=== PATIENT | male | born 1950 | race African-American/Black ===

== ENCOUNTER 2016-10-11 18:29 | Emergency (ER) | payer BC, OTHER ==
--- NOTE | 2016-10-11 19:09 | ER Document Report ---
ED Medical Screen (RME) - General Chief Complaint: Groin Pain Stated Complaint: GROIN PAIN TRAVEL OUTSIDE OF THE [place] IN LAST 30 DAYS: No - HPI Notes: 10/11/16 19:08 History of hernias patient states now has a fullness in the right inguinal region. Unable to fully examine the patient bed assignment given patient taken straight back - Related Data Allergies/Adverse Reactions: No Known Allergies Allergy (Verified 10/11/16 18:37) Past Medical History - Past Medical History Cardiac Medical History: Reports: Hx Coronary Artery Disease - stent x 2, Hx Hypertension - on meds Pulmonary Medical History: Denies: Hx Asthma, Hx Bronchitis, Hx COPD, Hx Pneumonia Neurological Medical History: Denies: Hx Cerebrovascular Accident, Hx Seizures Renal/ Medical History: Denies: Hx Peritoneal Dialysis Musculoskeltal Medical History: Denies Hx Arthritis Past Surgical History: Reports: Hx Cardiac Surgery - cardiac cath with stent - Immunizations Hx Diphtheria, Pertussis, Tetanus Vaccination: Yes Physical Exam - Vital signs Vitals: Temp Pulse Resp BP Pulse Ox 97.3 F 70 18 152/114 H 100 10/11/16 18:37 10/11/16 18:37 10/11/16 18:37 10/11/16 18:37 10/11/16 18:37 - Respiratory Respiratory status: No respiratory distress Chest status: Nontender Breath sounds: Normal Course - Vital Signs Vital signs: Temp Pulse Resp BP Pulse Ox 97.3 F 70 18 152/114 H 100 10/11/16 18:37 10/11/16 18:37 10/11/16 18:37 10/11/16 18:37 10/11/16 18:37
--- NOTE | 2016-10-11 19:45 | ER Document Report ---
ED General - General Chief Complaint: Groin Pain Stated Complaint: GROIN PAIN Notes: Patient is a 66-year-old male who presents with concerns of right inguinal crease pain. States this started after he was lifting a water cooler earlier today. Since that time he has had a dull, mild, constant, throbbing pain to the right inguinal region. Nothing improves or worsens the pain. States this feels similar to when he is had a inguinal hernia on the left which is status post repair. Denies any abdominal pain, vomiting or additional concerns. Denies any testicular pain. He has not seen his primary care doctor regarding today's concerns. TRAVEL OUTSIDE OF THE [place] IN LAST 30 DAYS: No - Related Data Allergies/Adverse Reactions: No Known Allergies Allergy (Verified 10/11/16 18:37) Past Medical History - General Information source: Patient - Social History Smoking Status: Never Smoker Frequency of alcohol use: None Drug Abuse: None Family History: Reviewed & Not Pertinent Patient has suicidal ideation: No Patient has homicidal ideation: No - Past Medical History Cardiac Medical History: Reports: Hx Coronary Artery Disease - stent x 2, Hx Hypertension - on meds Pulmonary Medical History: Denies: Hx Asthma, Hx Bronchitis, Hx COPD, Hx Pneumonia Neurological Medical History: Denies: Hx Cerebrovascular Accident, Hx Seizures Renal/ Medical History: Denies: Hx Peritoneal Dialysis Musculoskeltal Medical History: Denies Hx Arthritis Past Surgical History: Reports: Hx Cardiac Surgery - cardiac cath with stent - Immunizations Hx Diphtheria, Pertussis, Tetanus Vaccination: Yes Review of Systems - Review of Systems Notes: Constitutional: Negative for fever. HENT: Negative for sore throat. Eyes: Negative for visual changes. Cardiovascular: Negative for chest pain. Respiratory: Negative for shortness of breath. Gastrointestinal: Negative for abdominal pain, vomiting or diarrhea. Genitourinary: Negative for dysuria. Musculoskeletal: Negative for back pain. Skin: Negative for rash. Neurological: Negative for headaches, weakness or numbness. 10 point ROS negative except as marked above and in HPI. Physical Exam - Vital signs Vitals: Temp Pulse Resp BP Pulse Ox 97.3 F 70 18 152/114 H 100 10/11/16 18:37 10/11/16 18:37 10/11/16 18:37 10/11/16 18:37 10/11/16 18:37 Interpretation: Hypertensive Notes: PHYSICAL EXAMINATION: GENERAL: Well-appearing, well-nourished and in no acute distress. HEAD: Atraumatic, normocephalic. EYES: Pupils equal round and reactive to light, extraocular movements intact, sclera anicteric, conjunctiva are normal. ENT: nares patent, oropharynx clear without exudates. Moist mucous membranes. NECK: Normal range of motion, supple without lymphadenopathy LUNGS: Breath sounds clear to auscultation bilaterally and equal. No wheezes rales or rhonchi. HEART: Regular rate and rhythm without murmurs ABDOMEN: Soft, nontender, normoactive bowel sounds. No guarding, no rebound. No masses appreciated. There is a small defect of the right inguinal canal. No intestinal protrusion or bulging with bearing down or coughing : Positive cremasteric reflex bilaterally. No epididymal tenderness. No testicular tenderness EXTREMITIES: Normal range of motion, no pitting or edema. No cyanosis. NEUROLOGICAL: No focal neurological deficits. Moves all extremities spontaneously and on command. PSYCH: Normal mood, normal affect. SKIN: Warm, Dry, normal turgor, no rashes or lesions noted. Course - Re-evaluation Re-evalutation: 10/11/16 19:42 Patient presents with right inguinal pain. He does have a small defect in the right inguinal ring but no actual hernia. This is despite asking patient to bear down and cough and I still do not appreciate any bowel coming through the inguinal defect. Suspect some mild inflammation of the inguinal ring at this time and I have recommended the patient follow-up with outpatient surgery for consideration of repair if he continues to have discomfort. No evidence of testicular torsion, epididymitis, or varicocele on exam. Abdominal exam is otherwise completely benign and I do not intra-abdominal pathology. Patient denies any abdominal pain. At this time will discharge with return precautions and follow-up recommendations. Verbal discharge instructions given a the bedside and opportunity for questions given. Medication warnings reviewed. Patient is in agreement with this plan and has verbalized understanding of return precautions and the need for primary care follow-up in the next 24-72 hours. - Vital Signs Vital signs: Temp Pulse Resp BP Pulse Ox 97.5 F 77 20 159/87 H 100 10/11/16 20:25 10/11/16 20:25 10/11/16 20:25 10/11/16 20:25 10/11/16 20:25 Discharge - Discharge Clinical Impression: Right inguinal pain Condition: Good Disposition: HOME, SELF-CARE Additional Instructions: Please follow-up closely with an outpatient surgery regarding your right inguinal groin pain. There is no hernia on exam at this time. Return to the emergency room immediately if you develop worsening of your pain, vomiting, feel a bulge to the area that does not to go down by laying back and gently pressing on the area, or any other symptoms that are worrisome to you. Referrals: POOL MARRERO MD [ACTIVE STAFF] - Follow up as needed
[2016-10-12 02:40] VITALS: BP 159/87
== END 2016-10-11 20:25 | disposition home or self-care (01) ==
LOC: ER 18:29
DX: R10.31 Right lower quadrant pain (principal)
CPT/HCPCS: 99283

== ENCOUNTER 2016-11-25 11:24 | Emergency (ER) | payer BC, OTHER | END 2016-11-25 18:00 | disposition home or self-care (01) | LOC: ER 11:24 | DX: K40.90 Unilateral inguinal hernia, without obstruction or gangrene, not specified as recurrent (principal); R10.9 Unspecified abdominal pain; I10 Essential (primary) hypertension; I25.10 Atherosclerotic heart disease of native coronary artery without angina pectoris | CPT/HCPCS: 76857; 99284 ==

== ENCOUNTER 2017-01-05 13:28 | Day surgery (SDC) | payer BC, OTHER ==
[2017-01-01 10:13] LABS: HEMATOCRIT 43.2 % (37.9-51.0); HEMOGLOBIN 13.6 g/dL (13.5-17.0); HGB HCT DIFFERENCE -2.4; MEAN CORPUSCULAR HEMOGLOBIN 26.1 pg (27.0-33.4); MEAN CORPUSCULAR HGB CONC 31.4 g/dL (32.0-36.0); MEAN CORPUSCULAR VOLUME 83 fl (80-97); RED CELL DISTRIBUTION WIDTH 16.6 % (11.5-14.0); WHITE BLOOD COUNT 4.1 10^3/uL (4.0-10.5)
[2017-01-01 10:41] LABS: ANION GAP 12 (5-19); BLOOD UREA NITROGEN 11 mg/dL (7-20); CALCIUM 10.9 mg/dL (8.4-10.2); CARBON DIOXIDE 28 mmol/L (22-30); CHLORIDE 106 mmol/L (98-107); CREATININE RESULT 1.01 mg/dL (0.52-1.25); GLUCOSE 88 mg/dL (75-110); POTASSIUM 4.3 mmol/L (3.6-5.0); SODIUM 146.3 mmol/L (137-145)
--- NOTE | 2017-01-02 17:24 | EKG REPORT ---
SEVERITY:- ABNORMAL ECG - SINUS RHYTHM PAIRED VENTRICULAR PREMATURE COMPLEXES LVH BY VOLTAGE : Confirmed by: Jose Conway 02-Jan-2017 17:24:31
[~2017-01-05 13:28] MED LIST: GLYCOPYRROLATE INJ 0.4 MG/2 ML VIAL ONE; LACTATED RINGERS 1000 ML IV PRN; LIDOCAINE 0.5% INJ-PF (5 MG/ML) 50 ML SDV SUBCUT PRN; LIDOCAINE 2% INJ-PF (20 MG/ML) 10 ML AMPUL ONE; METOCLOPRAMIDE HCL INJ/PF 10 MG/2 ML SDV ONE; NEOSTIGMINE METHYLSULFATE 10 MG/10 ML VIAL ONE; ONDANSETRON HCL INJ/PF 4 MG/2 ML SDV ONE; ROCURONIUM BROMIDE INJ 50 MG/5 ML VIAL IV ONE; SUCCINYLCHOLINE CHLORIDE INJ 200 MG/10 ML VIAL ONE
[2017-01-05] MEDS ORDERED: CEFAZOLIN 1 GM/D5W RTU 1 GM/50 ML RTUPB IV ONE (14:41)
[2017-01-05] MEDS ORDERED: ACETAMINOPHEN 325 MG TABLET PO PRN (14:47)
[2017-01-05] MEDS ORDERED: BUPIVACAINE HCL 0.25 % INJ/PF (2.5 MG/1 ML) 30 ML VIAL ONE (15:04)
[2017-01-05] MEDS ORDERED: FENTANYL CITRATE INJ/PF 250 MCG/5 ML AMPULE ONE (19:19)
[2017-01-05] MEDS ORDERED: MIDAZOLAM 2 MG/2 ML INJ ONE (19:19)
[2017-01-05] MEDS ORDERED: BUPIVACAINE HCL 0.25 % INJ/PF (2.5 MG/1 ML) 30 ML VIAL INJ ONE (19:20)
[2017-01-05] MEDS ORDERED: PROPOFOL INJ 200 MG/20 ML VIAL IV ONE (19:20)
[2017-01-05] MEDS ORDERED: MORPHINE SULFATE 10 MG/ML INJ ONE (19:20)
[2017-01-05] MEDS ORDERED: IBUPROFEN INJ 800 MG/8 ML VIAL IV ONE (19:20)
[2017-01-05] MEDS ORDERED: PROMETHAZINE HCL INJ 25 MG/1 ML VIAL IV PRN ×2 (20:16)
[2017-01-05] MEDS ORDERED: FENTANYL CITRATE INJ/PF 100 MCG/2 ML AMPUL IV PRN ×3 (20:16)
[2017-01-05] MEDS ORDERED: DIPHENHYDRAMINE HCL 50 MG/ML VIAL IV PRN (20:16)
[2017-01-05] MEDS ORDERED: OXYCODONE-ACETAMINOPHEN 5-325 MG TABLET PO PRN ×3 (20:16→21:14)
[2017-01-05] MEDS ORDERED: MORPHINE SULFATE 10 MG/ML INJ IV PRN (20:16)
[2017-01-05] MEDS ORDERED: MEPERIDINE HCL/PF INJ 25 MG/1 ML DISP.SYRIN IV PRN (20:16)
--- NOTE | 2017-01-05 21:11 | Operative Report ---
Operative Report DATE OF SURGERY: 01/05/17 PREOPERATIVE DIAGNOSIS: Right inguinal hernia POSTOPERATIVE DIAGNOSIS: Sliding right inguinal hernia OPERATION: Sliding right inguinal hernia repair with mesh SURGEON: CONSUELO BALDERAS ANESTHESIA: GA TISSUE REMOVED OR ALTERED: Cord lipoma COMPLICATIONS: None ESTIMATED BLOOD LOSS: Minimal INTRAOPERATIVE FINDINGS: Sliding indirect right inguinal hernia PROCEDURE: Informed consent was obtained. Patient was brought to the operating room placed on the operating table in supine position. After satisfactory induction of general anesthesia patient's right groin was prepped and draped in usual sterile fashion. A transverse right groin incision was made dissection was carried down and the external oblique was opened along its fascial fibers thus opening the external inguinal ring. The cord was mobilized at the pubic tubercle. The ilioinguinal nerve was identified and protected during the dissection. The direct floor appeared intact. Dissection at the anterior aspect of the cord revealed a cord lipoma which was dissected free clamped divided tied and excised. There was a indirect inguinal hernia sac which was dissected free revealing that the medial portion of it was composed of thick fatty tissue that could very well have been bladder composing sliding inguinal hernia. The hernia sac was opened allowing finger palpation of the femoral space to make sure there was no femoral hernia. All of the sliding component and the indirect inguinal hernia sac was dissected free to well beyond the level of the internal ring allowing it to slide back into the preperitoneal space. Mesh repair was then performed with [employer] pro-valance cutter mesh. A single fixation suture was placed at the pubic tubercle. The sling ends were brought back together in a sling-like configuration thus re-creating the internal inguinal ring and allowing the egress of the cord structures. The mesh laid flat with excellent coverage. Of note the iliohypogastric nerve would have been in the way of the repair therefore he was taken by clamping dividing and tying. Hemostasis appeared excellent. Marcaine was injected. External oblique was closed over the repair and the cord structures using running Vicryl suture. Anjel's fascia was closed with interrupted Vicryl sutures. Skin was closed with subcuticular running Monocryl suture. Patient tolerated procedure well with no apparent complications and was taken to the recovery area in stable condition.
[2017-01-05] MEDS ORDERED: RINGERS SOLUTION,LACTATED 1,000 ML IV PRN (21:14)
--- NOTE | 2017-01-05 21:14 | PDOC DISCHARGE SUMMARY ---
Discharge Summary (SDC) - Discharge Final Diagnosis: Right inguinal hernia Date of Surgery: 01/05/17 Discharge Date: 01/05/17 Condition: Good Treatment or Instructions: Sliding right inguinal hernia repair with mesh. May discharge patient home when met discharge criteria. Follow-up with me in 2 weeks. Stay active at home but avoid strenuous activity. May shower in 2 days. Keep Steri-Strips on. Prescriptions: Oxycodone HCl/Acetaminophen [Percocet 5-325 mg Tablet] 1 - 2 tab PO ASDIR PRN # 25 tablet PRN Reason: For Pain Scale 3-5 Discharge Diet: As Tolerated Discharge Activity: Activity As Tolerated Report the Following to Your Physician Immediately: Fever over 101 Degrees, Unusual Bleeding, Redness, Drainage-Foul Smelling
[2017-01-05] MEDS: ONDANSETRON HCL INJ/PF 4 MG/2 ML SDV IV PRN (23:33)
[2017-01-06] MEDS: ONDANSETRON HCL INJ/PF 4 MG/2 ML SDV IV PRN (03:41)
--- NOTE | 2017-01-06 09:33 | PDOC PROGRESS REPORT ---
Subjective Progress Note for:: 01/06/17 Subjective:: Feels well this morning. Had urinary retention last night requiring Goodwin catheter placement. Patient denies any prior history of urinary retention. Very little pain this morning. Physical Exam Vital Signs: Temp Pulse Resp BP Pulse Ox 98.0 F 44 L 20 120/86 H 99 01/06/17 07:57 01/06/17 07:57 01/06/17 07:57 01/06/17 07:57 01/06/17 07:57 Intake & Output 01/05/17 01/06/17 01/07/17 06:59 06:59 06:59 Intake Total 2450 Output Total 905 Balance 1545 Weight 88.45 kg General appearance: PRESENT: no acute distress, cooperative, other - Bilateral groin lymphadenopathy. Small inguinal lymph nodes palpable. No axillary lymphadenopathy. No epitrochlear lymphadenopathy. No supraclavicular lymphadenopathy. No cervical lymphadenopathy. Respiratory exam: PRESENT: clear to auscultation candida Cardiovascular exam: PRESENT: RRR - hr 60 GI/Abdominal exam: PRESENT: other - Soft, nondistended, nontender to palpation. Rectal exam: PRESENT: other - Normal anal sphincter tone. No perianal masses. Due to patient's body habitus I cannot feel the prostate. Gentrourinary exam: PRESENT: other - Catheter in place. No scrotal swelling. Minimal groin swelling. Wound clean dry and intact. Minimal tenderness. Results Laboratory Results: 01/01/17 09:52 01/05/17 15:20 01/05/17 15:20 Potassium 3.4 L Assessment & Plan - Diagnosis (1) Inguinal hernia of right side without obstruction or gangrene Is this a current diagnosis for this admission?: YesPlan: Sliding right inguinal hernia status post repair. Patient with urinary retention requiring Goodwin catheter. Will start Flomax. Continue Goodwin catheter will try Goodwin removal in a few days. Patient with groin lymphadenopathy. In the reviewing his hospital records he had a CT scan couple of years ago which demonstrated extensive pelvic lymphadenopathy. Patient notes that he never had complete evaluation for this CT scan. While he is in the hospital I will obtain a chest abdomen and pelvic CT scan to evaluate his lymphadenopathy. Will likely discharge the patient home later today. Had nausea and vomiting earlier feels better now. (2) Lymphadenopathy Is this a current diagnosis for this admission?: YesPlan: Check a chest abdomen pelvic CT scan (3) Urinary retention Is this a current diagnosis for this admission?: YesPlan: Placed on Flomax. Keep Goodwin catheter.
[2017-01-06] MEDS ORDERED: TAMSULOSIN HCL 0.4 MG CAP.SR.24H PO ONE (10:30)
--- NOTE | 2017-01-06 14:34 | RADIOLOGY REPORT (SQ) ---
EXAM DESCRIPTION: CT CHEST WITH; CT ABD/PELVIS WITH IV ORAL COMPLETED DATE/TIME: 01/06/2017 1:25 pm REASON FOR STUDY: Lymphadenopathy K40.90 UNIL INGUINAL HERNIA, W/O OBST OR GANGR, NOT SPCF COMPARISON: None. CONTRAST TYPE AND DOSE: contrast/concentration: Isovue 370.00 mg/ml; Total Contrast Delivered: 95.0 ml; Total Saline Delivered: 71.0 ml RENAL FUNCTION: Creatinine 1.0 TECHNIQUE: CT scan of the chest performed using helical scanning technique with dynamic intravenous contrast injection. Images reviewed with lung, soft tissue and bone windows. Reconstructed coronal a nd sagittal MPR images reviewed. All images stored on PACS. CT scan of the abdomen and pelvis performed with intravenous and with oral contrastusing helical scan alyssa technique with dynamic intravenous contrast injection. Images reviewed with lung, soft tissue a nd bone windows. Reconstructed coronal and sagittal MPR images reviewed. Delayed images for evaluat ion of the urinary system also acquired and evaluated. All images stored on PACS. All CT scanners at this facility use dose modulation, iterative reconstruction, and/or weight based d osing when appropriate to reduce radiation dose to as low as reasonably achievable (ALARA). [facility]: Dose Right [facility]: CareDose [facility]: Dose Right [facility]: Teradose 4D [facility]: [employer] RADIATION DOSE: Up-to-date CT equipment and radiation dose reduction techniques were employed. CTDIv ol: 7.6 - 16.7 mGy. DLP: 1833 mGy-cm. . LIMITATIONS: None. FINDINGS: CHEST: On coronal reconstruction images 60-69, and axial images 5 through 14, lobular low-density soft tissu e nodules are present in the extrapleural space is at both the right and left apex hemithorax. There is diffuse soft tissue enlargement of the right and left brachials plexus. 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 LUNGS AND PLEURA: Minimal bibasilar atelectasis. No pleural effusions. No pneumothorax. No worriso me pulmonary nodules. HILAR AND MEDIASTINAL STRUCTURES: No identified masses or abnormal nodes. HEART AND VASCULAR STRUCTURES: No aneurysm or dissection. No central pulmonary emboli. No pericardi al effusion. HARDWARE: None. THYROID AND OTHER SOFT TISSUES: No masses. No adenopathy. BONES: No significant finding. OTHER: Small hiatal hernia. Bilateral gynecomastia ABDOMEN AND PELVIS: There are multiple low-density well defined masses along the bilateral lumbar nerve roots deep to the right and left psoas muscles. There is also soft tissue in the presacral space and in the bilateral sciatic notch is, and along the pelvic retroperitoneal fat. All of these findings are suggestive of plexiform neurofibromas. 2 small isolated probable neurofibromas are present in the right posterior retroperitoneal fat, 3 x 2 cm on axial image 28 and 2.5 x 1.5 cm on axial image 38. There is also 1 .3 cm probable neurofibroma in the left pararenal space on axial image 37. LIVER: Normal size. No masses. No dilated ducts. SPLEEN: Normal size. No focal lesions. PANCREAS: No masses. No significant calcifications. No adjacent inflammation or peripancreatic fluid collections. Pancreatic duct not dilated. GALLBLADDER: No identified stones by CT criteria. No inflammatory changes to suggest cholecystitis. ADRENAL GLANDS: No significant masses or asymmetry. RIGHT KIDNEY AND URETER: No solid masses. No significant calcification. No hydronephrosis or hydroure ter. Right upper pole 3.2 cm cortical cyst. LEFT KIDNEY AND URETER: No solid masses. No significant calcification. No hydronephrosis or hydrouret er. Left upper pole 1 cm cyst, left lower pole 3.3 cm cyst. AORTA AND VESSELS: No aneurysm. No dissection. Renal arteries, SMA, celiac without stenosis. RETROPERITONEUM: As above. 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 No free fluid or peritoneal masses. APPENDIX: Normal. ABDOMINAL WALL: Post recent right inguinal hernia repair with air bubbles along the right lower quadr ant superficial abdominal wall structures, best shown on axial images 41-82. Old remote prior left i nguinal hernia repair new since prior CT 07/25/2012. BONES: No significant or acute findings. PELVIS: Bladder, rectum unremarkable. 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 TECHNICAL DOCUMENTATION: JOB ID: [id number] Quality ID # [id number]: Final reports with documentation of one or more dose reduction techniques (e.g., Au tomated exposure control, adjustment of the mA and/or kV according to patient size, use of iterative reconstruction technique) 2010 [employer]- All Rights Reserved
--- NOTE | 2017-01-06 16:53 | PDOC PROGRESS REPORT ---
Subjective Progress Note for:: 01/06/17 Subjective:: Feels well. Minimal pain. No complaints. Physical Exam Vital Signs: Temp Pulse Resp BP Pulse Ox 97.1 F 75 16 121/83 100 01/06/17 11:59 01/06/17 11:59 01/06/17 11:59 01/06/17 11:59 01/06/17 11:59 Intake & Output 01/05/17 01/06/17 01/07/17 06:59 06:59 06:59 Intake Total 2450 Output Total 905 1600 Balance 1545 -1600 Weight 88.45 kg General appearance: PRESENT: no acute distress, cooperative Respiratory exam: PRESENT: clear to auscultation candida Cardiovascular exam: PRESENT: RRR GI/Abdominal exam: PRESENT: other - Soft, nondistended, nontender to palpation. Gentrourinary exam: PRESENT: other - Indwelling catheter. Minimal groin swelling. Wound clean dry and intact. No erythema. No scrotal swelling. 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 Assessment & Plan - Diagnosis (1) Inguinal hernia of right side without obstruction or gangrene Is this a current diagnosis for this admission?: YesPlan: Sliding right inguinal hernia status post repair. Doing well. Will discharge patient home (2) Lymphadenopathy Is this a current diagnosis for this admission?: YesPlan: What appears like lymphadenopathy may be neurofibromatosis. Chest and abdominal CT scan noteworthy for findings consistent with neurofibromatosis. No other significant findings. Incidental kidney cyst. Will discharge patient home with follow-up with oncology. (3) Urinary retention Is this a current diagnosis for this admission?: YesPlan: Placed on Flomax. Keep Goodwin catheter. Will discharge patient home with leg bag.
--- NOTE | 2017-01-06 16:58 | PDOC DISCHARGE SUMMARY ---
Discharge Summary (SDC) - Discharge Final Diagnosis: Sliding right inguinal hernia. Urinary retention. Neurofibromatosis. Date of Surgery: 01/05/17 Discharge Date: 01/06/17 Condition: Good Treatment or Instructions: Sliding right inguinal hernia repair with mesh. Goodwin catheter insertion. Chest and abdominal pelvic CT scan. Discharge patient with Goodwin catheter. Please instruct patient on Goodwin catheter care. Follow-up with me this Wednesday. Stay active at home but avoid strenuous activity. May shower tomorrow. Keep Steri-Strips on. Prescriptions: Oxycodone HCl/Acetaminophen [Percocet 5-325 mg Tablet] 1 tab PO Q4HP PRN #30 tablet PRN Reason: For Pain Scale 3-5 Tamsulosin HCl [Flomax 0.4 mg Cap.sr] 0.4 mg PO DAILY #7 cap.sr.[id number] Referrals: CONSUELO BALDERAS MD [ACTIVE STAFF] - 01/20/17 9:45 am Discharge Activity: Activity As Tolerated Report the Following to Your Physician Immediately: Fever over 101 Degrees, Unusual Bleeding, Redness, Drainage-Foul Smelling
[2017-01-06 17:16] VITALS: BP 110/75
== END 2017-01-06 18:06 | disposition home or self-care (01) ==
LOC: OROUT 13:28 → UNDOADMOB 22:11 → 2N 22:11 → OROUT 01-06 18:06 → UNDODISOB 01-06 18:06
PROVIDERS: ATTEND Surgery
PROC: 0YU50JZ Supplement Right Inguinal Region with Synthetic Substitute, Open Approach (ICD-10-PCS; principal; 2017-01-05 16:30)
DX: K40.90 Unilateral inguinal hernia, without obstruction or gangrene, not specified as recurrent (principal); D17.6 Benign lipomatous neoplasm of spermatic cord; I10 Essential (primary) hypertension; I25.10 Atherosclerotic heart disease of native coronary artery without angina pectoris; Z79.899 Other long term (current) drug therapy; Z98.61 Coronary angioplasty status
CPT/HCPCS: 93005; 36415 ×2; 84132; 85027; 80048; 88305 ×2; 71260; 74177; 93010; 49525; C1781; J2250; J0690; J3490 ×2; J3010; J2765; J2270; J0330; J2405 ×2; J2704; J1741; 830

== ENCOUNTER → 2017-01-18 | Outpatient (CLI) | payer BC, OTHER | LOC: OD 16:20 | PROVIDERS: ATTEND Nurse Practitioner Adult Health | DX: D40.0 Neoplasm of uncertain behavior of prostate (principal) | CPT/HCPCS: 36415; 84153 ==

== ENCOUNTER 2017-11-17 15:25 | Emergency (ER) | payer BC, OTHER ==
[2017-11-17] MEDS ORDERED: HYDRALAZINE HCL 50 MG TABLET PO ONE (15:53)
[2017-11-17] MEDS ORDERED: AMLODIPINE BESYLATE 10 MG TABLET PO ONE (15:53)
[2017-11-17] MEDS ORDERED: HYDROCHLOROTHIAZIDE 25 MG TABLET PO ONE (15:53)
[2017-11-17 16:59] VITALS: BP 174/124
--- NOTE | 2017-11-17 17:01 | ER Document Report ---
ED General - General Chief Complaint: Blood Pressure Problem Stated Complaint: BLOOD PRESSURE PROBLEMS Time Seen by Provider: 11/17/17 15:53 TRAVEL OUTSIDE OF THE [place] IN LAST 30 DAYS: No - HPI Patient complains to provider of: Elevated blood pressure Notes: Patient coming in for elevated blood pressure patient states he was at work when he became clammy service but therefore came into the ER for further evaluation. Patient denies any head pain chest pain abdominal pain lightheadedness dizziness. Patient states he forgot to take his blood pressure medications point which consist of hydralazine amlodipine and hydrochlorothiazide. Patient nontoxic looking asymptomatic upon my evaluation. - Related Data Allergies/Adverse Reactions: No Known Allergies Allergy (Verified 11/17/17 15:46) Past Medical History - Social History Smoking Status: Never Smoker Chew tobacco use (# tins/day): No Frequency of alcohol use: None Drug Abuse: None Family History: Reviewed & Not Pertinent Patient has suicidal ideation: No Patient has homicidal ideation: No - Past Medical History Cardiac Medical History: Reports: Hx Coronary Artery Disease - stent x 2, Hx Hypertension - on meds Denies: Hx Heart Attack Pulmonary Medical History: Denies: Hx Asthma, Hx Bronchitis, Hx COPD, Hx Pneumonia Neurological Medical History: Denies: Hx Cerebrovascular Accident, Hx Seizures Renal/ Medical History: Denies: Hx Peritoneal Dialysis Musculoskeltal Medical History: Denies Hx Arthritis Past Surgical History: Reports: Hx Cardiac Surgery - cardiac cath with stent - Immunizations Hx Diphtheria, Pertussis, Tetanus Vaccination: Yes Review of Systems - Review of Systems Constitutional: Other - Elevated blood pressure EENT: No symptoms reported Cardiovascular: No symptoms reported Respiratory: No symptoms reported Gastrointestinal: No symptoms reported Genitourinary: No symptoms reported Male Genitourinary: No symptoms reported Musculoskeletal: No symptoms reported Skin: No symptoms reported Hematologic/Lymphatic: No symptoms reported Neurological/Psychological: No symptoms reported Physical Exam - Vital signs Vitals: Temp Pulse Resp BP Pulse Ox 97.6 F 55 L 18 200/156 H 98 11/17/17 15:42 11/17/17 15:42 11/17/17 15:42 11/17/17 15:42 11/17/17 15:42 Interpretation: Hypertensive - General General appearance: Appears well, Alert - HEENT Head: Normocephalic, Atraumatic Eyes: Normal Pupils: PERRL - Respiratory Respiratory status: No respiratory distress Chest status: Nontender Breath sounds: Normal Chest palpation: Normal - Cardiovascular Rhythm: Regular Heart sounds: Normal auscultation Murmur: No - Abdominal Inspection: Normal Distension: No distension Bowel sounds: Normal Tenderness: Nontender Organomegaly: No organomegaly - Back Back: Normal, Nontender - Extremities General upper extremity: Normal inspection, Nontender, Normal color, Normal ROM , Normal temperature General lower extremity: Normal inspection, Nontender, Normal color, Normal ROM , Normal temperature, Normal weight bearing. No: Isidoro's sign - Neurological Neuro grossly intact: Yes Cognition: Normal Orientation: AAOx4 Jena Coma Scale Eye Opening: Spontaneous Jena Coma Scale Verbal: Oriented Jena Coma Scale Motor: Obeys Commands Jena Coma Scale Total: 15 Speech: Normal Motor strength normal: LUE, RUE, LLE, RLE Sensory: Normal - Psychological Associated symptoms: Normal affect, Normal mood - Skin Skin Temperature: Warm Skin Moisture: Dry Skin Color: Normal Course - Re-evaluation Re-evalutation: 11/17/17 20:40 Patient's blood pressure decreasing after 1 hour post p.o. prescribed blood pressure medications. Patient again asymptomatic. Patient was encouraged to take his medications as prescribed once he arrives home. Patient agrees with discharge - Vital Signs Vital signs: Temp Pulse Resp BP Pulse Ox 97.7 F 75 17 174/124 H 100 11/17/17 16:55 11/17/17 16:55 11/17/17 16:55 11/17/17 16:58 11/17/17 16:55 Discharge - Discharge Clinical Impression: Hypertension Qualifiers: Hypertension type: unspecified Qualified Code(s): I10 - Essential (primary) hypertension Condition: Good Disposition: HOME, SELF-CARE Instructions: High Blood Pressure ([facility]) Additional Instructions: Continue with your high blood pressure medications tonight as scheduled. Continue your blood pressure medications as scheduled tomorrow morning to. Follow-up with your primary care physician in 1 week for further evaluation. Return to ER for any concerns. Forms: Return to Work
--- NOTE | 2017-11-17 18:21 | EKG REPORT ---
SEVERITY:- ABNORMAL ECG - SINUS RHYTHM PVC : Confirmed by: Fran Luciano MD 17-Nov-2017 18:19:56
== END 2017-11-17 17:02 | disposition home or self-care (01) ==
LOC: ER 15:25
DX: I10 Essential (primary) hypertension (principal); T46.5X6A Underdosing of other antihypertensive drugs, initial encounter; T46.1X6A Underdosing of calcium-channel blockers, initial encounter; T50.2X6A Underdosing of carbonic-anhydrase inhibitors, benzothiadiazides and other diuretics, initial encounter; Z91.138 Patient's unintentional underdosing of medication regimen for other reason; Z91.14 Patient's other noncompliance with medication regimen; I25.10 Atherosclerotic heart disease of native coronary artery without angina pectoris; Z95.5 Presence of coronary angioplasty implant and graft
CPT/HCPCS: 93005; 93010; 99283

== ENCOUNTER 2018-03-11 08:14 | Emergency (ER) | payer BC, OTHER ==
[2018-03-11 09:17] LABS: ABSOLUTE EOSINOPHILS # (AUTO) 0.1 10^3/uL (0.0-0.6); ABSOLUTE LYMPHOCYTES (AUTO) 2.5 10^3/uL (0.5-4.7); ABSOLUTE MONOCYTES (AUTO) 0.4 10^3/uL (0.1-1.4); ABSOLUTE NEUT (AUTO) 1.4 10^3/uL (1.7-8.2); BASOPHILS % (AUTO) 0.9 % (0-2); EOSINOPHILS % (AUTO) 1.7 % (0-6); HEMATOCRIT 41.6 % (37.9-51.0); HEMOGLOBIN 13.4 g/dL (13.5-17.0); LYMPHOCYTES % (AUTO) 56.6 % (13-45); MEAN CORPUSCULAR HEMOGLOBIN 26.4 pg (27.0-33.4); MEAN CORPUSCULAR HGB CONC 32.3 g/dL (32.0-36.0); MEAN CORPUSCULAR VOLUME 82 fl (80-97); MONOCYTES % (AUTO) 8.3 % (3-13); PLATELET COUNT 253 10^3/uL (150-450); RED CELL DISTRIBUTION WIDTH 17.1 % (11.5-14.0); SEGMENTED NEUTROPHILS % (AUTO) 32.5 % (42-78); TOTAL CELLS COUNTED % (AUTO) 100 %; WHITE BLOOD COUNT 4.4 10^3/uL (4.0-10.5)
--- NOTE | 2018-03-11 09:28 | ER Document Report ---
ED General - General Chief Complaint: Chest Pain Stated Complaint: CHEST PRESSURE Time Seen by Provider: 03/11/18 08:56 TRAVEL OUTSIDE OF THE [place] IN LAST 30 DAYS: No - HPI Patient complains to provider of: chest pressure Notes: Pleasant elderly man presents with episode of chest pressure this morning while getting ready for work approximately 3-1/2 hours ago. Patient has history of cardiac disease. He states this did not feel like that. This is much less. This was a slight chest pressure 2/10 without radiation. Denies diaphoresis, nausea, vomiting, other issues. Patient states his previous heart attacks it was a 10 out of 10 when she got stents. Patient wants to get checked out but does want to go to work today. He does not think he is willing to stay in the hospital or get transferred. Denies fever chills or cough. - Related Data Allergies/Adverse Reactions: No Known Allergies Allergy (Verified 11/17/17 15:46) Past Medical History - Social History Smoking Status: Unknown if Ever Smoked Family History: Reviewed & Not Pertinent Patient has suicidal ideation: No Patient has homicidal ideation: No - Past Medical History Cardiac Medical History: Reports: Hx Coronary Artery Disease - stent x 2, Hx Hypertension - on meds Denies: Hx Heart Attack Pulmonary Medical History: Denies: Hx Asthma, Hx Bronchitis, Hx COPD, Hx Pneumonia Neurological Medical History: Denies: Hx Cerebrovascular Accident, Hx Seizures Renal/ Medical History: Denies: Hx Peritoneal Dialysis Musculoskeletal Medical History: Denies Hx Arthritis Past Surgical History: Reports: Hx Cardiac Surgery - cardiac cath with stent - Immunizations Hx Diphtheria, Pertussis, Tetanus Vaccination: Yes Review of Systems - Review of Systems Notes: REVIEW OF SYSTEMS: CONSTITUTIONAL: -fevers, -chills EENT: -eye pain, -difficulty swallowing, -nasal congestion CARDIOVASCULAR: +chest pain, -syncope. RESPIRATORY: -cough, -SOB GASTROINTESTINAL: -abdominal pain, -nausea, -vomiting, -diarrhea GENITOURINARY: -dysuria, -hematuria MUSCULOSKELETAL: -back pain, -neck pain SKIN: -rash or skin lesions. HEMATOLOGIC: -easy bruising or bleeding. LYMPHATIC: -swollen, enlarged glands. NEUROLOGICAL: -altered mental status or loss of consciousness, -headache, - neurologic symptoms PSYCHIATRIC: -anxiety, -depression. ALL OTHER SYSTEMS REVIEWED AND NEGATIVE. Physical Exam - Vital signs Vitals: Temp Pulse Resp BP Pulse Ox 97.9 F 73 16 159/100 H 99 03/11/18 08:31 03/11/18 08:31 03/11/18 08:31 03/11/18 08:31 03/11/18 08:31 - Notes Notes: PHYSICAL EXAMINATION: GENERAL: Well-appearing, well-nourished and in no acute distress. HEAD: Atraumatic, normocephalic. EYES: Pupils equal round and reactive to light, extraocular movements intact, sclera anicteric, conjunctiva are normal. ENT: nares patent, oropharynx clear without exudates. Moist mucous membranes. NECK: Normal range of motion, supple without lymphadenopathy LUNGS: Breath sounds clear to auscultation bilaterally and equal. No wheezes rales or rhonchi. HEART: Regular rate and rhythm without murmurs ABDOMEN: Soft, nontender, normoactive bowel sounds. No guarding, no rebound. No masses appreciated. EXTREMITIES: Normal range of motion, no pitting or edema. No cyanosis. NEUROLOGICAL: Cranial nerves grossly intact. Normal speech, normal gait. Normal sensory and motor exams. PSYCH: Normal mood, normal affect. SKIN: Warm, Dry, normal turgor, no rashes or lesions noted. Course - Re-evaluation Re-evalutation: 03/11/18 10:35 Well-appearing 67-year-old male presents with some chest pressure this morning. Has no other episodes. EKG is very reassuring, chest x-ray is no focal infiltrate extensive labs unremarkable. Patient observed in the department. I personally walk the department with the patient to see if he can elicit any more symptoms. No more chest pain. Patient is not on any long-acting nitrates. I will initiate indoor therapy this was angina. Follow-up with PCP on Wednesday - Vital Signs Vital signs: Temp Pulse Resp BP Pulse Ox 97.9 F 73 16 159/100 H 99 03/11/18 08:31 03/11/18 08:31 03/11/18 08:31 03/11/18 08:31 03/11/18 08:31 - Laboratory Result Diagrams: 03/11/18 08:48 03/11/18 08:48 Laboratory results interpreted by me: 03/11/18 03/11/18 08:48 08:48 Hgb 13.4 L MCH 26.4 L RDW 17.1 H Seg Neutrophils % 32.5 L Lymphocytes % 56.6 H Absolute Neutrophils 1.4 L Potassium 3.4 L Calcium 10.4 H Alkaline Phosphatase 135 H Creatine Kinase 235 H - EKG Interpretation by Me Additional EKG results interpreted by me: 03/11/18 09:[address] elevations or depressions, no pathologic T-wave inversions., normal intervals Discharge - Discharge Clinical Impression: Chest pressure Condition: Stable Disposition: HOME, SELF-CARE Instructions: Angina Episode ([facility]) Additional Instructions: See your PCP TERRY Prescriptions: Isosorbide Mononitrate [Imdur 30 mg Tablet.er] 30 mg PO DAILY #30 tab.er.24h
[2018-03-11 09:34] LABS: ALANINE AMINOTRANSFERASE 21 U/L (21-72); ALBUMIN 4.3 g/dL (3.5-5.0); ALKALINE PHOSPHATASE 135 U/L (38-126); ANION GAP 11 (5-19); ASPARTATE AMINO TRANSFERASE 31 U/L (17-59); BILIRUBIN,DIRECT 0.4 mg/dL (0.0-0.4); BILIRUBIN,TOTAL 0.5 mg/dL (0.2-1.3); BLOOD UREA NITROGEN 11 mg/dL (7-20); CALCIUM 10.4 mg/dL (8.4-10.2); CARBON DIOXIDE 28 mmol/L (22-30); CHLORIDE 106 mmol/L (98-107); CREATINE KINASE 235 U/L (55-170); GLUCOSE 92 mg/dL (75-110); POTASSIUM 3.4 mmol/L (3.6-5.0)
--- NOTE | 2018-03-11 09:37 | RADIOLOGY REPORT (SQ) ---
EXAM DESCRIPTION: CHEST SINGLE VIEW COMPLETED DATE/TIME: 03/11/2018 9:21 am REASON FOR STUDY: chest pain Chest pain, no trauma COMPARISON: CT chest 01/06/2017 AP chest film 08/14/2007 EXAM PARAMETERS: NUMBER OF VIEWS: One view. TECHNIQUE: Single frontal radiographic view of the chest acquired. RADIATION DOSE: NA LIMITATIONS: None. FINDINGS: LUNGS AND PLEURA: No opacities, masses or pneumothorax. No pleural effusion. MEDIASTINUM AND HILAR STRUCTURES: No masses. Contour normal. HEART AND VASCULAR STRUCTURES: Mild cardiomegaly, stable. Prominent central pulmonary arteries, ques tion pulmonary hypertension BONES: No acute findings. HARDWARE: None in the chest. OTHER: No other significant finding. IMPRESSION: Mild stable cardiomegaly. Prominent central pulmonary arteries TECHNICAL DOCUMENTATION: JOB ID: [id number]- All Rights Reserved Reading location - IP/workstation name: [email or web address]
[2018-03-11 09:44] LABS: CREATINE KINASE MB 2.74 ng/mL (<4.55); TROPONIN I 0.016 ng/mL
[2018-03-11 10:40] VITALS: BP 176/105
--- NOTE | 2018-03-11 12:53 | EKG REPORT ---
SEVERITY:- BORDERLINE ECG - SINUS RHYTHM BORDERLINE T ABNORMALITIES, INFERIOR LEADS : Confirmed by: Fran Luciano MD 11-Mar-2018 12:52:28
== END 2018-03-11 10:46 | disposition home or self-care (01) ==
LOC: ER 08:14
DX: R07.9 Chest pain, unspecified (principal); I25.10 Atherosclerotic heart disease of native coronary artery without angina pectoris; I10 Essential (primary) hypertension
CPT/HCPCS: 36415; 71045; 80053; 82550; 82553; 84484; 85025; 93005; 93010; 99285

== ENCOUNTER 2019-06-12 18:57 | Emergency (ER) | payer BC, MEDICARE, OTHER ==
[2019-06-12] MEDS ORDERED: KETOROLAC TROMETHAMINE INJ/PF 30 MG/1 ML SDV IV ONE (19:47)
[2019-06-12] MEDS ORDERED: ONDANSETRON HCL INJ/PF 4 MG/2 ML SDV IV ONE (19:47)
[2019-06-12 20:19] LABS: APPEARANCE,URINE CLEAR; BILIRUBIN,URINE NEGATIVE (NEGATIVE); CALCIUM OXALATE CRYSTALS,URINE FEW /HPF; COLOR,URINE YELLOW; GLUCOSE, URINE NEGATIVE (NEGATIVE); KETONES,URINE NEGATIVE (NEGATIVE); LEUKOCYTE ESTERASE,URINE NEGATIVE (NEGATIVE); NITRITE,URINE NEGATIVE (NEGATIVE); PROTEIN,URINE NEGATIVE (NEGATIVE); URINE SPECIFIC GRAVITY 1.024
[2019-06-12 20:23] LABS: ABSOLUTE EOSINOPHILS # (AUTO) 0.1 10^3/uL (0.0-0.6); ABSOLUTE LYMPHOCYTES (AUTO) 1.3 10^3/uL (0.5-4.7); ABSOLUTE MONOCYTES (AUTO) 0.3 10^3/uL (0.1-1.4); ABSOLUTE NEUT (AUTO) 1.5 10^3/uL (1.7-8.2); BASOPHILS % (AUTO) 1.1 % (0-2); EOSINOPHILS % (AUTO) 1.8 % (0-6); HEMOGLOBIN 12.7 g/dL (13.5-17.0); LYMPHOCYTES % (AUTO) 39.8 % (13-45); MEAN CORPUSCULAR HEMOGLOBIN 25.9 pg (27.0-33.4); MEAN CORPUSCULAR HGB CONC 32.5 g/dL (32.0-36.0); MEAN CORPUSCULAR VOLUME 80 fl (80-97); MONOCYTES % (AUTO) 9.5 % (3-13); PLATELET COUNT 241 10^3/uL (150-450); RED BLOOD COUNT 4.89 10^6/uL (4.35-5.55); RED CELL DISTRIBUTION WIDTH 17.6 % (11.5-14.0); SEGMENTED NEUTROPHILS % (AUTO) 47.8 % (42-78); TOTAL CELLS COUNTED % (AUTO) 100 %; WHITE BLOOD COUNT 3.2 10^3/uL (4.0-10.5)
[2019-06-12 20:44] LABS: ALBUMIN 4.3 g/dL (3.5-5.0); ALKALINE PHOSPHATASE 143 U/L (38-126); ANION GAP 9 (5-19); ASPARTATE AMINO TRANSFERASE 22 U/L (17-59); BILIRUBIN,DIRECT 0.1 mg/dL (0.0-0.4); BILIRUBIN,TOTAL 0.6 mg/dL (0.2-1.3); BLOOD UREA NITROGEN 17 mg/dL (7-20); CALCIUM 10.9 mg/dL (8.4-10.2); CARBON DIOXIDE 27 mmol/L (22-30); CHLORIDE 103 mmol/L (98-107); GLUCOSE 78 mg/dL (75-110); POTASSIUM 3.9 mmol/L (3.6-5.0)
--- NOTE | 2019-06-12 21:44 | RADIOLOGY REPORT (SQ) ---
EXAM DESCRIPTION: CT ABDOMEN PELVIS WITHOUT IV CONTRAST COMPLETED DATE/TME: 06/12/2019 20:31 CLINICAL HISTORY: 69 years, Male, RT FLANK PAIN COMPARISON: Prior study from 01/06/2017 TECHNIQUE: Noncontrast CT of the abdomen/pelvis was performed. Coronal and sagittal reformations were acquired. Images stored on PACS. All CT scanners at this facility use dose modulation, iterative reconstruction, and/or weight based dosing when appropriate to reduce radiation dose to as low as reasonably achievable (ALARA). [facility]: Dose Right [facility]: CareDose [facility]: Dose Right [facility]: Teradose 4D [facility]: [email or web address] LIMITATIONS: None. FINDINGS: Limited evaluation of the lower chest reveals a band of opacity about the left lower lobe, indicating an area of atelectasis or scar. A subcentimeter low-density lesion is noted about the periphery of the left hepatic lobe, too small to accurately characterize though unchanged from 01/06/2017 and most likely benign. A few additional subcentimeter low-density lesions are noted about the remainder of the liver parenchyma, also unchanged. The spleen, pancreas, gallbladder, and both adrenal glands appear normal. Multiple fluid density lesions are noted about both kidneys, incompletely assessed on this noncontrast study though statistically corresponding to simple renal cysts. There is no hydronephrosis or hydroureter. The urinary bladder is collapsed, thus its evaluation is limited. However, it appears diffusely thick-walled. Prostate gland is enlarged. The small and large bowel appear normal in caliber. No evidence of bowel obstruction. Appendix is not well visualized; however, no pericecal inflammatory changes are appreciated. Calcifications are evident about the abdominal aorta and proximal iliac vessels. Innumerable fluid density/intermediate density lesions are noted about the retroperitoneum as well as the pelvis, similar in configuration to the previous examination dated 01/06/2017. Likewise, several of these lesions appear contiguous with the lumbar and sacral foramina. 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 IMPRESSION: Mild circumferential urinary bladder wall thickening, nonspecific. Correlate for cystitis. Multiple fluid/intermediate density mass is located about the retroperitoneum as well as the pelvis, emanating from the lumbar and sacral foramina, similar to the previous examination dated 01/06/2017. 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 Prostatomegaly. TECHNICAL DOCUMENTATION: Quality ID # [id number]: Final reports with documentation of one or more dose reduction techniques (e.g., Automated exposure control, adjustment of the mA and/or kV according to patient size, use of iterative reconstruction technique) copyright 2011 [employer]- All Rights Reserved
--- NOTE | 2019-06-12 22:25 | ER Document Report ---
ED General - General Chief Complaint: Flank Pain Stated Complaint: FLANK PAIN Time Seen by Provider: 06/12/19 20:13 TRAVEL OUTSIDE OF THE [place] IN LAST 30 DAYS: No - Related Data Allergies/Adverse Reactions: No Known Allergies Allergy (Verified 11/17/17 15:46) Past Medical History - Social History Smoking Status: Never Smoker Chew tobacco use (# tins/day): No Frequency of alcohol use: None Drug Abuse: None Family History: Reviewed & Not Pertinent Patient has suicidal ideation: No Patient has homicidal ideation: No - Past Medical History Cardiac Medical History: Reports: Hx Coronary Artery Disease - stent x 2, Hx Hypertension - on meds Denies: Hx Heart Attack Pulmonary Medical History: Denies: Hx Asthma, Hx Bronchitis, Hx COPD, Hx Pneumonia Neurological Medical History: Denies: Hx Cerebrovascular Accident, Hx Seizures Renal/ Medical History: Denies: Hx Peritoneal Dialysis Musculoskeletal Medical History: Denies Hx Arthritis Past Surgical History: Reports: Hx Cardiac Surgery - cardiac cath with stent - Immunizations Hx Diphtheria, Pertussis, Tetanus Vaccination: Yes Physical Exam - Vital signs Vitals: Temp Pulse Resp BP Pulse Ox 97.8 F 72 18 180/101 H 100 06/12/19 19:04 06/12/19 19:04 06/12/19 19:04 06/12/19 19:04 06/12/19 19:04 - Notes Notes: Presents emerge department complaining about right flank pain is been gone for t he past 2 days. It came on gradually gradually got progressively worse. Is nonradiating. Says it feels somewhat like his previous kidney stone. He denies any trauma falls or heavy lifting and no real change with movement. Denies any ripping or tearing sensation in his back and no numbness or weakness in his legs he nausea or vomiting. Tonight he was out bowling and as he was attempting his backswing he started having increasing pain in the area and presents for evaluation. He did not fall. Says the pain is in the same location. He said no abdominal pain with this and no fevers. He has had some difficulty starting his stream but after it starts he is able to have good urine output. He has no actual dysuria or hematuria he says his blood pressure has been doing well he has been compliant with his medications but missed a dose yesterday today he thinks he denies any headaches abnormal vision chest pain or shortness of breath Past medical history significant for hypertension coronary disease with stent and previous kidney stone. Social history does not smoke or drink at all Review of systems pertinent positives and negatives in HPI otherwise all the systems were reviewed and acutely negative PHYSICIAN EXAM -vital signs are noted triage note and note from triage reviewed GENERAL: Well-appearing, well-nourished and in __no____ HEAD: Atraumatic, normocephalic. EYES: Pupils equal round and reactive to light, extraocular movements intact, sclera anicteric, conjunctiva are normal. ENT: nares patent, oropharynx clear without exudates. Moist mucous membranes. NECK: supple without lymphadenopathy LUNGS: Breath sounds clear to auscultation bilaterally and equal. No wheezes rales or rhonchi. HEART: Regular rate and rhythm without murmurs there is an occasional ectopic and he reports he has had a heartbeat in the past ABDOMEN: Soft, nontender, normoactive bowel sounds. There is no pulsatile masses and good femoral pulses EXTREMITIES: No deformity, no edema. NEUROLOGICAL: Alert oriented x4. He has good motor strength in the lower extremities. Toes downgoing sensation intact light touch is good pulses in the foot and no pain with straight leg raise PSYCH: Normal mood, normal affect. SKIN: Warm, Dry, normal turgor, no rashes or lesions noted. BACK-nontender in the midline there is a minimum CVA tenderness on the right. He has some minimal pain and return from side to side Course - Re-evaluation Re-evalutation: 06/12/19 23:11 ED patient is remained stable he was given ketorolac from triage. Abdomen is nontender rechecked his blood pressure he still has good pulses in his feet and neurological deficits Medical decision making patient presents with right flank pain for 2 days this is like his previous kidney stone he does have a few red cells in his urine and calcium oxalate crystals CT his CT did not show a stone is possible he has a small stone in the past he does have some evidence of UTI with some information of the bladder also X1 at this point I think he be discharged home is really no evidence at this time to suggest that he has a aneurysm we will treat him with antibiotics and short course of Vicodin one a side effect of medication rest and follow-up with his family doctor his blood pressure is elevated he says he is been is 1-2 doses. He is asymptomatic with this so I do not think he needs to be acutely low it. Feel that this is related to his blood pressure no evidence of endorgan damage. He does have a few red cells in his urine but he has evidence of an infection symptoms suggestive of a UTI I did emphasize need for him to take his medicine tonight check his blood pressure at home in 1 to 2 days Dictation was done using voice recognition software. There may be some grammatical errors which are unintentional I discussed results of laboratory findings and diagnostic test with patient/family. The treatment plan was explained and I reviewed the discharge instructions with them. Questions were answered. The patient/family verbalizes understanding 06/12/19 23:22 - Vital Signs Vital signs: Temp Pulse Resp BP Pulse Ox 97.8 F 72 18 184/119 H 100 06/12/19 19:04 06/12/19 19:04 06/12/19 19:04 06/12/19 23:17 06/12/19 19:04 - Laboratory Result Diagrams: 06/12/19 20:10 06/12/19 20:10 Laboratory results interpreted by me: 06/12/19 06/12/19 06/12/19 20:00 20:10 20:10 WBC 3.2 L Hgb 12.7 L MCH 25.9 L RDW 17.6 H Absolute Neuts (auto) 1.5 L Calcium 10.9 H Alkaline Phosphatase 143 H Urine Blood MODERATE H Urine Urobilinogen 4.0 H - EKG Interpretation by Me Additional EKG results interpreted by me: 06/12/19 23:24 His EKG shows a normal sinus rhythm rate of 61. He is got some LVH with strain and some PVCs PVCs are new but the LVH is unchanged from February 2018 Discharge - Discharge Clinical Impression: Flank pain UTI (urinary tract infection) Qualifiers: Urinary tract infection type: acute cystitis Disposition: HOME, SELF-CARE Instructions: Antinausea Medication ([facility]), Oral Narcotic Medication ([facility]), Uri nary Tract Infection ([facility]) Additional Instructions: Please review the discharge instructions, they will tell you about your disease/injury and what you need to return to the ED for Return to the ED if you feel worse or can follow-up with your family doctor Make sure you take your blood pressure medicine when you get home and take it on a regular basis You should check your blood pressure in 2 to 3 days and if still elevated follow-up with your family doctor Follow-up with your family doctor in 2 3 days if not better otherwise in 2 weeks to recheck your urine The pain medications may cause drowsiness. Be careful if you are using crutches. Do not drive or operate machinery. Do not take Tylenol with the pain medication Drink plenty fluids Your blood pressure was elevated today needs to be rechecked again in 1 to 2 weeks to determine if need to be on medication or have your medications adjusted. Untreated hypertension can cause heart attack stroke and kidney failure Forms: Elevated Blood Pressure
--- NOTE | 2019-06-12 22:28 | EKG REPORT ---
SEVERITY:- ABNORMAL ECG - SINUS RHYTHM ABNORMAL T, CONSIDER ISCHEMIA, LATERAL LEADS : Confirmed by: Amita Druan MD 12-Jun-2019 22:27:45
[2019-06-12] MEDS ORDERED: CEFPODOXIME 200 MG TABLET PO ONE ×2 (23:14→23:43)
[2019-06-12] MEDS ORDERED: HYDROCODONE/ACETAMINOPHEN 5-325 MG (6 TAB/ER DISP) PO PRN (23:16)
[2019-06-13 00:43] VITALS: BP 151/107
== END 2019-06-13 00:06 | disposition home or self-care (01) ==
LOC: ER 18:57
DX: N30.00 Acute cystitis without hematuria (principal); R10.9 Unspecified abdominal pain; I25.10 Atherosclerotic heart disease of native coronary artery without angina pectoris; I10 Essential (primary) hypertension; Z79.899 Other long term (current) drug therapy
CPT/HCPCS: 93005; 99284; 96374; 96375; 36415; 85025; 80053; 81001; 74176; 93010; J1885; J2405

== ENCOUNTER 2020-06-03 11:15 | Emergency (ER) | payer BC, MEDICARE, OTHER ==
--- NOTE | 2020-06-03 12:10 | RADIOLOGY REPORT (SQ) ---
EXAM DESCRIPTION: CT ABD/PELVIS NO ORAL OR IV IMAGES COMPLETED DATE/TIME: 06/03/2020 11:51 am REASON FOR STUDY: bloody urine COMPARISON: 06/12/2019, 01/06/2017 TECHNIQUE: CT scan of the abdomen and pelvis performed without intravenous or oral contrast. Images reviewed with lung, soft tissue, and bone windows. Reconstructed coronal and sagittal MPR images revi ewed. All images stored on PACS. All CT scanners at this facility use dose modulation, iterative reconstruction, and/or weight based d osing when appropriate to reduce radiation dose to as low as reasonably achievable (ALARA). [facility]: Dose Right [facility]: CareDose [facility]: Dose Right [facility]: Teradose 4D [facility]: [employer] RADIATION DOSE: CT Rad equipment meets quality standard of care and radiation dose reduction techniq ues were employed. CTDIvol: 8.1 mGy. DLP: 432 mGy-cm.mGy. LIMITATIONS: None. FINDINGS: LOWER CHEST: No significant findings. No nodules or infiltrates. NON-CONTRASTED LIVER, SPLEEN, ADRENALS: Evaluation limited by lack of IV contrast. No identified sign ificant masses. PANCREAS: No masses. No peripancreatic inflammatory changes. GALLBLADDER: No identified stones by CT criteria. No inflammatory changes to suggest cholecystitis. RIGHT KIDNEY AND URETER: No suspicious masses. Stable small right renal cysts. No significant calc ifications. No hydronephrosis or hydroureter. LEFT KIDNEY AND URETER: No suspicious masses. Stable small left renal cyst. No significant calcifi cations. No hydronephrosis or hydroureter. AORTA AND RETROPERITONEUM: Bilateral retroperitoneal mass is which begin at the level of the inferior poles of the kidneys displacing the psoas muscles anteriorly. These extend anterior to the neurovas cular bundle into the inguinal regions bilaterally. Numerous soft tissue masses in the presacral spa ce. Stable bony changes in the pelvis consistent with neurofibromas as well. BOWEL AND PERITONEAL CAVITY: No obvious masses or inflammatory changes. No free fluid. APPENDIX: Normal. PELVIS, BLADDER, AND ABDOMINAL WALL:The bladder is incompletely distended but appears grossly unchang ed from 2019. BONES: No significant findings. OTHER: No other significant finding. IMPRESSION: 1. Bilateral renal cysts. No renal stones or obstruction. 2. Numerous pelvic and retroperitoneal lesions stable from prior exams most consistent with plexifor m neurofibromas as previously described. COMMENT: Quality ID # [id number]: Final reports with documentation of one or more dose reduction techniques (e.g., Automated exposure control, adjustment of the mA and/or kV according to patient size, use of iterative reconstruction technique) TECHNICAL DOCUMENTATION: JOB ID: [id number] [employer]- All Rights Reserved Reading location - IP[facility]workstation name: [email or web address]
[2020-06-03 12:24] LABS: APPEARANCE,URINE CLOUDY; BILIRUBIN,URINE NEGATIVE (NEGATIVE); GLUCOSE, URINE 50 mg/dL (NEGATIVE); KETONES,URINE NEGATIVE (NEGATIVE); LEUKOCYTE ESTERASE,URINE NEGATIVE (NEGATIVE); NITRITE,URINE NEGATIVE (NEGATIVE); PROTEIN,URINE >=500 mg/dL (NEGATIVE); URINE SPECIFIC GRAVITY 1.027; UROBILINOGEN,URINE NEGATIVE mg/dL (<2.0)
[2020-06-03 12:27] LABS: COLOR,URINE RED
[2020-06-03 12:45] LABS: ABSOLUTE LYMPHOCYTES (AUTO) 1.3 10^3/uL (0.5-4.7); ABSOLUTE MONOCYTES (AUTO) 0.2 10^3/uL (0.1-1.4); ABSOLUTE NEUT (AUTO) 1.5 10^3/uL (1.7-8.2); BASOPHILS % (AUTO) 0.8 % (0-2); EOSINOPHILS % (AUTO) 1.1 % (0-6); HEMATOCRIT 37.6 % (37.9-51.0); HEMOGLOBIN 12.3 g/dL (13.5-17.0); LYMPHOCYTES % (AUTO) 42.1 % (13-45); MEAN CORPUSCULAR HEMOGLOBIN 26.9 pg (27.0-33.4); MEAN CORPUSCULAR HGB CONC 32.8 g/dL (32.0-36.0); MEAN CORPUSCULAR VOLUME 82 fl (80-97); MONOCYTES % (AUTO) 7.3 % (3-13); PLATELET COUNT 216 10^3/uL (150-450); RED BLOOD COUNT 4.59 10^6/uL (4.35-5.55); RED CELL DISTRIBUTION WIDTH 16.6 % (11.5-14.0); SEGMENTED NEUTROPHILS % (AUTO) 48.7 % (42-78); TOTAL CELLS COUNTED % (AUTO) 100 %
[2020-06-03 12:51] LABS: ALBUMIN 4.2 g/dL (3.5-5.0); ALKALINE PHOSPHATASE 161 U/L (38-126); ANION GAP 9 (5-19); ASPARTATE AMINO TRANSFERASE 19 U/L (17-59); BILIRUBIN,DIRECT 0.1 mg/dL (0.0-0.4); BILIRUBIN,TOTAL 0.4 mg/dL (0.2-1.3); BLOOD UREA NITROGEN 11 mg/dL (7-20); CALCIUM 10.7 mg/dL (8.4-10.2); CARBON DIOXIDE 26 mmol/L (22-30); CHLORIDE 107 mmol/L (98-107); GLUCOSE 91 mg/dL (75-110); POTASSIUM 4.2 mmol/L (3.6-5.0); TOTAL PROTEIN 7.4 g/dL (6.3-8.2)
--- NOTE | 2020-06-03 13:02 | ER Document Report ---
ED General - General Chief Complaint: Urinary Problem Stated Complaint: BLOOD IN URINE Time Seen by Provider: 06/03/20 11:34 Mode of Arrival: Ambulatory Information source: Patient TRAVEL OUTSIDE OF THE U[place]S. IN LAST 30 DAYS: No - HPI Notes: Patient presents with 1 day of blood in the urine. He denies any fever sweats or chills. He has not been lightheaded or dizzy. He denies any previous history of similar episodes. He did state that approxi-1 year ago he was diagnosed with prostate cancer and had radiation but has not had any further problems with the cancer. He has no abdominal pain. No pain with urination. He does not take a blood thinner. He denies any scrotal lesions or pain. His symptoms started this morning and more with one episode of urination. Nothing has made it better or worse. - Related Data Allergies/Adverse Reactions: No Known Allergies Allergy (Verified 06/03/20 12:10) Home Medications: blood pressure medication. baby aspirin Past Medical History - General Information source: Patient - Social History Smoking Status: Never Smoker Chew tobacco use (# tins/day): No Frequency of alcohol use: None Drug Abuse: None Family History: Reviewed & Not Pertinent - Past Medical History Cardiac Medical History: Reports: Hx Coronary Artery Disease - stent x 2, Hx Hypertension - on meds Denies: Hx Heart Attack Pulmonary Medical History: Denies: Hx Asthma, Hx Bronchitis, Hx COPD, Hx Pneumonia Neurological Medical History: Denies: Hx Cerebrovascular Accident, Hx Seizures Renal/ Medical History: Denies: Hx Peritoneal Dialysis Musculoskeletal Medical History: Denies Hx Arthritis Past Surgical History: Reports: Hx Cardiac Surgery - cardiac cath with stent - Immunizations Hx Diphtheria, Pertussis, Tetanus Vaccination: Yes Review of Systems - Review of Systems Constitutional: denies: Chills, Fever Cardiovascular: denies: Chest pain, Palpitations Respiratory: denies: Cough, Short of breath -: Yes All other systems reviewed and negative Physical Exam - Vital signs Vitals: Temp Pulse Resp BP Pulse Ox 98.0 F 35 L 19 180/93 H 99 06/03/20 11:23 06/03/20 11:23 06/03/20 11:23 06/03/20 11:23 06/03/20 11:23 Interpretation: Hypertensive - General General appearance: Appears well, Alert - HEENT Head: Normocephalic, Atraumatic Eyes: Normal Pupils: PERRL - Respiratory Respiratory status: No respiratory distress Chest status: Nontender Breath sounds: Normal Chest palpation: Normal - Cardiovascular Rhythm: Regular Heart sounds: Normal auscultation Murmur: No - Abdominal Inspection: Normal Distension: No distension Bowel sounds: Normal Tenderness: Nontender Organomegaly: No organomegaly - Genitourinary Inspection: Normal. No: Blood at meatus, Penile discharge Tenderness: Nontender - Back Back: Normal, Nontender - Extremities General upper extremity: Normal inspection, Nontender, Normal color, Normal ROM, Normal temperature General lower extremity: Normal inspection, Nontender, Normal color, Normal ROM, Normal temperature, Normal weight bearing. No: Isidoro's sign - Neurological Neuro grossly intact: Yes Cognition: Normal Orientation: AAOx4 [place] Coma Scale Eye Opening: Spontaneous [place] Coma Scale Verbal: Oriented [place] Coma Scale Motor: Obeys Commands [place] Coma Scale Total: 15 Speech: Normal Motor strength normal: LUE, RUE, LLE, RLE Sensory: Normal - Psychological Associated symptoms: Normal affect, Normal mood - Skin Skin Temperature: Warm Skin Moisture: Dry Skin Color: Normal Course - Re-evaluation Re-evalutation: 06/03/20 13:07 Patient presents with blood in the urine but no other symptoms. His exam is unremarkable. CT shows no evidence that would explain why he has blood in the urine. Labs show no evidence of any type of coagulopathy or anemia. Patient does have evidence of a possible urinary tract infection. He also has a history of prostate cancer. I will start the patient on antibiotics and refer him to urology. I did discuss tendon rupture from the antibiotic with the patient. - Vital Signs Vital signs: Temp Pulse Resp BP Pulse Ox 98.0 F 35 L 19 180/93 H 99 06/03/20 11:23 06/03/20 11:23 06/03/20 11:23 06/03/20 11:23 06/03/20 11:23 - Laboratory Result Diagrams: 06/03/20 12:13 06/03/20 12:13 Laboratory results interpreted by me: 06/03/20 06/03/20 06/03/20 11:47 12:13 12:13 WBC 3.0 L Hgb 12.3 L Hct 37.6 L MCH 26.9 L RDW 16.6 H Absolute Neuts (auto) 1.5 L Calcium 10.7 H Alkaline Phosphatase 161 H Urine Protein >=500 H Urine Glucose (UA) 50 H - Diagnostic Test Radiology reviewed: Image reviewed, Reports reviewed Discharge - Discharge Clinical Impression: UTI (urinary tract infection) Qualifiers: Urinary tract infection type: acute cystitis Hematuria presence: with hematuria Qualified Code(s): N30.01 - Acute cystitis with hematuria Condition: Stable Disposition: HOME, SELF-CARE Instructions: Urinary Tract Infection ([facility]) Additional Instructions: Please follow-up with urology as soon as possible Prescriptions: Levofloxacin [Levaquin 500 mg Tablet] 500 mg PO DAILY #10 tablet Referrals: LILIANA FLORES MD [NO LOCAL MD] - Follow up in 3-5 days
[2020-06-03 13:28] VITALS: BP 159/105
== END 2020-06-03 13:31 | disposition home or self-care (01) ==
LOC: ER 11:15
DX: N30.01 Acute cystitis with hematuria (principal); Z85.46 Personal history of malignant neoplasm of prostate
CPT/HCPCS: 36415; 74176; 80053; 81001; 85025; 99284

== ENCOUNTER 2020-06-04 15:28 | Emergency (ER) | payer BC, MEDICARE, OTHER ==
--- NOTE | 2020-06-04 16:56 | ER Document Report ---
ED Medical Screen (RME) - General Chief Complaint: Urinary Problem Stated Complaint: URINARY ISSUE Notes: Patient is a 70-year-old male comes back to the emergency room complaining of dysuria. Patient states he was seen here yesterday because he was having severe amounts of blood in his urine and passing clots. States that they worked him up and could not find anything wrong sending home. Patient states is when he got home he now is still passing clots but his urine has halted to almost a dribble. And states that when he does urinate it hurts so bad he does not want to do it anymore. He denies being on any blood thinners. Patient had a history of prostate cancer 1 year ago and had that taken care of but has not followed up with the urologist since. Patient goes to the [place] for this. Physical examination: Patient is a well-nourished well-developed 70-year-old male no apparent distress but appears very uncomfortable. Cardiac: Regular rate and rhythm without any murmurs. Lungs: Bilateral breath sounds breath sounds increased throughout no rhonchi ral es or wheeze. Abdomen: In the sitting position patient displays some moderate tenderness suprapubically to palpation. Unable to really palpate the bladder in this position. Bowel sounds are present all 4 quads. At this time I am going to go ahead and order a bladder scan, most likely patient will need to have a Goodwin catheter placed and possibly a flush out of the bladder. But this will be determined by provider in the back where they can do a more thorough examination. At this time since the CT was done yesterday I am just can repeat some labs. I have greeted and performed a rapid initial assessment of this patient. A comprehensive ED assessment and evaluation of the patient, analysis of test results and completion of the medical decision making process will be conducted by additional ED providers. Dictation of this chart was performed using voice recognition software; therefore, there may be some unintended grammatical errors. TRAVEL OUTSIDE OF THE U.S. IN LAST 30 DAYS: No - Related Data Allergies/Adverse Reactions: No Known Allergies Allergy (Verified 06/04/20 16:40) Past Medical History - Past Medical History Cardiac Medical History: Reports: Hx Coronary Artery Disease - stent x 2, Hx Hypertension - on meds Denies: Hx Heart Attack Pulmonary Medical History: Denies: Hx Asthma, Hx Bronchitis, Hx COPD, Hx Pneumonia Neurological Medical History: Denies: Hx Cerebrovascular Accident, Hx Seizures Renal/ Medical History: Denies: Hx Peritoneal Dialysis Musculoskeltal Medical History: Denies Hx Arthritis Past Surgical History: Reports: Hx Cardiac Surgery - cardiac cath with stent - Immunizations Hx Diphtheria, Pertussis, Tetanus Vaccination: Yes Physical Exam - Vital signs Vitals: Temp Pulse Resp BP Pulse Ox 98.2 F 79 18 131/73 H 100 06/04/20 15:56 06/04/20 15:56 06/04/20 15:56 06/04/20 15:56 06/04/20 15:56 Course - Vital Signs Vital signs: Temp Pulse Resp BP Pulse Ox 98.2 F 79 18 131/73 H 100 06/04/20 15:56 06/04/20 15:56 06/04/20 15:56 06/04/20 15:56 06/04/20 15:56
[2020-06-04 17:39] LABS: INTERNATIONAL RATION (INR) 1.06
[2020-06-04 17:40] LABS: PARTIAL THROMBOPLASTIN TIME 36.9 SEC (23.5-35.8)
[2020-06-04 17:41] LABS: ABSOLUTE LYMPHOCYTES (AUTO) 1.2 10^3/uL (0.5-4.7); ABSOLUTE MONOCYTES (AUTO) 0.3 10^3/uL (0.1-1.4); ABSOLUTE NEUT (AUTO) 4.8 10^3/uL (1.7-8.2); BASOPHILS % (AUTO) 0.4 % (0-2); EOSINOPHILS % (AUTO) 0.1 % (0-6); HEMATOCRIT 40.2 % (37.9-51.0); HEMOGLOBIN 13.2 g/dL (13.5-17.0); LYMPHOCYTES % (AUTO) 18.8 % (13-45); MEAN CORPUSCULAR HEMOGLOBIN 26.9 pg (27.0-33.4); MEAN CORPUSCULAR HGB CONC 32.9 g/dL (32.0-36.0); MEAN CORPUSCULAR VOLUME 82 fl (80-97); MONOCYTES % (AUTO) 4.5 % (3-13); PLATELET COUNT 262 10^3/uL (150-450); RED BLOOD COUNT 4.91 10^6/uL (4.35-5.55); RED CELL DISTRIBUTION WIDTH 16.1 % (11.5-14.0); SEGMENTED NEUTROPHILS % (AUTO) 76.2 % (42-78); TOTAL CELLS COUNTED % (AUTO) 100 %
[2020-06-04 17:43] LABS: WHITE BLOOD COUNT 6.3 10^3/uL (4.0-10.5)
[2020-06-04 17:47] LABS: ALBUMIN 4.8 g/dL (3.5-5.0); ALKALINE PHOSPHATASE 146 U/L (38-126); ANION GAP 11 (5-19); ASPARTATE AMINO TRANSFERASE 17 U/L (17-59); BILIRUBIN,TOTAL 0.5 mg/dL (0.2-1.3); BLOOD UREA NITROGEN 11 mg/dL (7-20); CALCIUM 11.1 mg/dL (8.4-10.2); CARBON DIOXIDE 25 mmol/L (22-30); CHLORIDE 99 mmol/L (98-107); GLUCOSE 122 mg/dL (75-110); POTASSIUM 3.9 mmol/L (3.6-5.0); TOTAL PROTEIN 8.4 g/dL (6.3-8.2)
[2020-06-04 17:53] LABS: APPEARANCE,URINE SLIGHTLY-CLOUDY; BILIRUBIN,URINE NEGATIVE (NEGATIVE); GLUCOSE, URINE 50 mg/dL (NEGATIVE); KETONES,URINE TRACE mg/dL (NEGATIVE); LEUKOCYTE ESTERASE,URINE NEGATIVE (NEGATIVE); NITRITE,URINE NEGATIVE (NEGATIVE); PROTEIN,URINE >=500 mg/dL (NEGATIVE); URINE SPECIFIC GRAVITY 1.028; UROBILINOGEN,URINE NEGATIVE mg/dL (<2.0)
[2020-06-04 18:01] LABS: COLOR,URINE RED
--- NOTE | 2020-06-04 18:35 | ER Document Report ---
ED GI/ - General Chief Complaint: Pain With Urination Stated Complaint: URINARY ISSUE Time Seen by Provider: 06/04/20 18:34 Mode of Arrival: Ambulatory Information source: Patient Notes: YESTERDAY NOTES Emergency Provider: TENA HAHN AAccount Number: [id number] Date: 06/03/20 13:00 Initialization Date: 06/03/20 13:00 ED General - General Chief Complaint: Urinary Problem Stated Complaint: BLOOD IN URINE Time Seen by Provider: 06/03/20 11:34 Mode of Arrival: Ambulatory Information source: Patient TRAVEL OUTSIDE OF THE [place] IN LAST 30 DAYS: No - HPI Notes: Patient presents with 1 day of blood in the urine. He denies any fever sweats or chills. He has not been lightheaded or dizzy. He denies any previous history of similar episodes. He did state that approxi-1 year ago he was diagnosed with prostate cancer and had radiation but has not had any further problems with the cancer. He has no abdominal pain. No pain with urination. He does not take a blood thinner. He denies any scrotal lesions or pain. His symptoms started this morning and more with one episode of urination. Nothing has made it better or worse. Re-evalutation: 06/03/20 13:07 Patient presents with blood in the urine but no other symptoms. His exam is unremarkable. CT shows no evidence that would explain why he has blood in the urine. Labs show no evidence of any type of coagulopathy or anemia. Patient does have evidence of a possible urinary tract infection. He also has a history of prostate cancer. I will start the patient on antibiotics and refer him to urology. I did discuss tendon rupture from the antibiotic with the patient. Patient was written for Levaquin antibiotic. 06/04/20 16:46 - Nursing Note by PARIS BURCH Acct Num: [id number] : 1950 Patient Age: 70 c/o bloody urine, pt was seen and tx in ED yesterday for same complaint, pt states complaint started yesterday and continues with clotting. pt reports pain with urination and decreased output. pain denies abdo or back pain. no N/V/ F. M José Miguel HUANG assessing complaint and discussing continued POC with pt ED Medical Screen (José Miguel Schroeder) - General Chief Complaint: Urinary Problem Stated Complaint: URINARY ISSUE Notes: Patient is a 70-year-old male comes back to the emergency room complaining of dysuria. Patient states he was seen here yesterday because he was having severe amounts of blood in his urine and passing clots. States that they worked him up and could not find anything wrong sending home. Patient states is when he got home he now is still passing clots but his urine has halted to almost a dribble. And states that when he does urinate it hurts so bad he does not want to do it anymore. He denies being on any blood thinners. Patient had a history of prostate cancer 1 year ago and had that taken care of but has not followed up with the urologist since. Patient goes to the [place] for this. Physical examination: Patient is a well-nourished well-developed 70-year-old male no apparent distress but appears very uncomfortable. Cardiac: Regular rate and rhythm without any murmurs. Lungs: Bilateral breath sounds breath sounds increased throughout no rhonchi rales or wheeze. Abdomen: In the sitting position patient displays some moderate tenderness suprapubically to palpation. Unable to really palpate the bladder in this position. Bowel sounds are present all 4 quads. At this time I am going to go ahead and order a bladder scan, most likely patient will need to have a Goodwin catheter placed and possibly a flush out of the bladder. But this will be determined by provider in the back where they can do a more thorough examination. At this time since the CT was done yesterday I am just can repeat some labs. MY NOTES 70-year-old black male arrives with blood from urine and dysuria since Wednesday morning when he awoke. He advises he has only some slight bladder pain and discomfort post void. Patient reports 4 years ago he had similar symptoms when he had a kidney stone but CT done yesterday was negative. Patient reports he was placed on antibiotic Levaquin yesterday as per Dr. Hahn here in the ER. Also a referral to urologist was advised. Patient is on aspirin 81 mg daily. He has never had any prostate issues or any bladder cancer in the past. He denies any trauma or overuse. He denies any penile lesions. He denies any testicle pain. Ultrasound was ordered tonight but patient is just emptied his bladder going to the bathroom. This was around 1850 TRAVEL OUTSIDE OF THE U.S. IN LAST 30 DAYS: No - Related Data Allergies/Adverse Reactions: No Known Allergies Allergy (Verified 06/04/20 16:40) Past Medical History - Social History Smoking Status: Never Smoker Chew tobacco use (# tins/day): No Frequency of alcohol use: None Drug Abuse: None Family History: Reviewed & Not Pertinent - Past Medical History Cardiac Medical History: Reports: Hx Coronary Artery Disease - stent x 2, Hx Hypertension - on meds Denies: Hx Heart Attack Pulmonary Medical History: Denies: Hx Asthma, Hx Bronchitis, Hx COPD, Hx Pneumonia Neurological Medical History: Denies: Hx Cerebrovascular Accident, Hx Seizures Renal/ Medical History: Denies: Hx Peritoneal Dialysis Musculoskeletal Medical History: Denies Hx Arthritis Past Surgical History: Reports: Hx Cardiac Surgery - cardiac cath with stent - Immunizations Hx Diphtheria, Pertussis, Tetanus Vaccination: Yes Review of Systems - Review of Systems Constitutional: No symptoms reported EENT: No symptoms reported Cardiovascular: No symptoms reported Respiratory: No symptoms reported Gastrointestinal: No symptoms reported Genitourinary: See HPI, Dysuria Male Genitourinary: No symptoms reported Musculoskeletal: No symptoms reported Skin: No symptoms reported Hematologic/Lymphatic: No symptoms reported Neurological/Psychological: No symptoms reported Physical Exam - Vital signs Vitals: Temp Pulse Resp BP Pulse Ox 98.2 F 79 18 131/73 H 100 06/04/20 15:56 06/04/20 15:56 06/04/20 15:56 06/04/20 15:56 06/04/20 15:56 Interpretation: Hypertensive - General General appearance: Appears well, Alert - HEENT Head: Normocephalic, Atraumatic Eyes: Normal Pupils: PERRL - Respiratory Respiratory status: No respiratory distress Chest status: Nontender Breath sounds: Normal Chest palpation: Normal - Cardiovascular Rhythm: Regular Heart sounds: Normal auscultation Murmur: No - Abdominal Inspection: Normal Distension: No distension Bowel sounds: Normal Tenderness: Nontender Organomegaly: No organomegaly - Rectal Prostate: Other - deferred - Genitourinary Tenderness: Nontender Scrotum: Normal - Back Back: Normal, Nontender - Extremities General upper extremity: Normal inspection, Nontender, Normal color, Normal ROM, Normal temperature General lower extremity: Normal inspection, Nontender, Normal color, Normal ROM, Normal temperature, Normal weight bearing. No: Isidoro's sign - Neurological Neuro grossly intact: Yes Cognition: Normal Orientation: AAOx4 [place] Coma Scale Eye Opening: Spontaneous [place] Coma Scale Verbal: Oriented [place] Coma Scale Motor: Obeys Commands [place] Coma Scale Total: 15 Speech: Normal Motor strength normal: LUE, RUE, LLE, RLE Sensory: Normal - Psychological Associated symptoms: Normal affect, Normal mood - Skin Skin Temperature: Warm Skin Moisture: Dry Skin Color: Normal Course - Vital Signs Vital signs: Temp Pulse Resp BP Pulse Ox 98.2 F 79 18 131/73 H 100 06/04/20 15:56 06/04/20 15:56 06/04/20 15:56 06/04/20 15:56 06/04/20 15:56 - Laboratory Result Diagrams: 06/04/20 17:11 06/04/20 17:11 Laboratory results interpreted by me: 06/04/20 06/04/20 06/04/20 16:42 17:11 17:11 Hgb 13.2 L MCH 26.9 L RDW 16.1 H APTT 36.9 H Sodium Glucose Calcium Alkaline Phosphatase Total Protein Urine Protein >=500 H Urine Glucose (UA) 50 H Urine Ketones TRACE H Urine Blood MODERATE H 06/04/20 17:11 Hgb MCH RDW APTT Sodium 135.2 L Glucose 122 H Calcium 11.1 H Alkaline Phosphatase 146 H Total Protein 8.4 H Urine Protein Urine Glucose (UA) Urine Ketones Urine Blood - Diagnostic Test Radiology reviewed: Reports reviewed - U/S with echogenic mass consistent with clot. Critical Care Note - Critical Care Note Comments: I advised patient of the clot in his bladder. Also advised him to stop his aspirin. He may stop Levaquin for time being as well. Follow-up with urologist advised calling tomorrow for appointment either in [place] or [place] or [facility]. Discharge - Discharge Clinical Impression: Bladder clots / mass Hematuria Qualifiers: Hematuria type: unspecified type Qualified Code(s): R31.9 - Hematuria, unspecified Condition: Stable Disposition: HOME, SELF-CARE Additional Instructions: Stop taking your aspirin and may stop taking your Levaquin at this time. Drink plenty of water over the holidays. Return to ER if no urine continues. Return immediately so a Goodwin catheter may be placed into your bladder. Follow-up with a urologist as soon as possible. Call tomorrow if possible. May use urologist in [place] or in [place] or in [place] or of choice. Forms: Return to Work
--- NOTE | 2020-06-04 21:30 | RADIOLOGY REPORT (SQ) ---
EXAM DESCRIPTION: U/S NON-OB PELVIS LTD W/O DOP CLINICAL HISTORY: 70 years Male, bloody urine- EVAL BLADDER TECHNIQUE: The bladder was assessed. Multiple cine images were obtained. Color flow imaging was performed. COMPARISON: CT scan of the abdomen and pelvis without contrast June 03, 2020 FINDINGS: The urinary bladder is distended. Complex mixed echogenicity mass is present within the bladder lumen with weblike areas. This area measures 11.4 x 9.9 x 7.6 cm. This is consistent with a large blood clot within the bladder. IMPRESSION: Large, complex mixed echogenicity mass within the bladder lumen consistent with a large blood clot.
[2020-06-04 23:19] VITALS: BP 127/72
== END 2020-06-04 23:18 | disposition home or self-care (01) ==
LOC: ER 15:28
DX: R31.0 Gross hematuria (principal); N32.9 Bladder disorder, unspecified; R30.0 Dysuria; R10.819 Abdominal tenderness, unspecified site; I25.10 Atherosclerotic heart disease of native coronary artery without angina pectoris; I10 Essential (primary) hypertension; Z95.5 Presence of coronary angioplasty implant and graft; Z87.442 Personal history of urinary calculi; Z79.82 Long term (current) use of aspirin
CPT/HCPCS: 36415; 76857; 80053; 81001; 85025; 85610; 85730; 87086; 99284

== ENCOUNTER 2020-06-05 08:01 | Emergency (ER) | payer BC, MEDICARE, OTHER ==
--- NOTE | 2020-06-05 09:00 | ER Document Report ---
ED General - General Chief Complaint: hematuria Stated Complaint: BLOOD IN URINE, URINATION PROBLEM Time Seen by Provider: 06/05/20 08:56 Primary Care Provider: KARINA STEPHENSON [Primary Care Provider] - Follow up as needed TRAVEL OUTSIDE OF THE [place] IN LAST 30 DAYS: No - HPI Notes: 70-year-old male with past medical history significant for prostate cancer in remission to the emergency department for his third visit in the past 3 days. He states that he started to come 2 days ago when he noticed jerzy gross bloody urine when he was going to the bathroom. He then returned the next day with the same complaint. Today however he has found that he is really having quite a bit of trouble urinating and he feels like he has to go all the time. He states he only will get a dribble out. Denies any fevers chills. Denies any nausea or vomiting. He denies any recent trauma. He was taking an 81 mg aspirin but was told to stop that yesterday. He had a plan to go see urologist later today. He did not have a specific appointment but he was going to go to the office and make 1. He does have a urologist who follows him infrequently at the [place]. He has not seen a urologist in over a year. He did have an ultrasound yesterday that showed a clot in his bladder. - Related Data Allergies/Adverse Reactions: No Known Allergies Allergy (Verified 06/04/20 16:40) Past Medical History - General Information source: Patient - Social History Smoking Status: Never Smoker Frequency of alcohol use: None Drug Abuse: None Family History: Reviewed & Not Pertinent - Past Medical History Cardiac Medical History: Reports: Hx Coronary Artery Disease - stent x 2, Hx Hypertension - on meds Denies: Hx Heart Attack Pulmonary Medical History: Denies: Hx Asthma, Hx Bronchitis, Hx COPD, Hx Pneumonia Neurological Medical History: Denies: Hx Cerebrovascular Accident, Hx Seizures Renal/ Medical History: Denies: Hx Peritoneal Dialysis Musculoskeletal Medical History: Denies Hx Arthritis Past Surgical History: Reports: Hx Cardiac Surgery - cardiac cath with stent - Immunizations Hx Diphtheria, Pertussis, Tetanus Vaccination: Yes Review of Systems - Review of Systems Constitutional: denies: Chills, Fever EENT: No symptoms reported Cardiovascular: denies: Chest pain, Palpitations, Heart racing, Orthopnea, Syncope, Dizziness, Lightheaded Respiratory: denies: Cough, Short of breath Gastrointestinal: Abdominal pain - Suprapubic abdominal pain. denies: Diarrhea, Nausea, Vomiting Genitourinary: Hematuria, Retention Male Genitourinary: No symptoms reported Musculoskeletal: No symptoms reported Skin: No symptoms reported Neurological/Psychological: No symptoms reported -: Yes All other systems reviewed and negative Physical Exam - Vital signs Vitals: Resp Pulse Ox 25 H 100 06/05/20 13:38 06/05/20 13:38 Temp Pulse Resp BP Pulse Ox 97.9 F 14 158/98 H 98 06/05/20 16:01 06/05/20 16:01 06/05/20 16:01 06/05/20 16:01 Interpretation: Normal Notes: PHYSICAL EXAMINATION: GENERAL: Well-appearing, well-nourished and in no acute distress. HEAD: Atraumatic, normocephalic. EYES: Pupils equal round and reactive to light, extraocular movements intact, s clera anicteric, conjunctiva are normal. ENT: nares patent, oropharynx clear without exudates. Moist mucous membranes. NECK: Normal range of motion, supple without lymphadenopathy LUNGS: Breath sounds clear to auscultation bilaterally and equal. No wheezes rales or rhonchi. HEART: Regular rate and rhythm without murmurs ABDOMEN: There is tenderness to palpation over the suprapubic abdomen with noted distention of the bladder. Patient has mild guarding with palpation but no rebound. He has no CVA tenderness. EXTREMITIES: Normal range of motion, no pitting or edema. No cyanosis. NEUROLOGICAL: No focal neurological deficits. Moves all extremities spontaneously and on command. PSYCH: Normal mood, normal affect. SKIN: Warm, Dry, normal turgor, no rashes or lesions noted. Course - Re-evaluation Re-evalutation: 06/05/20 Discussed this patient with Dr. Pimentel since this is his third visit to the emergency department. Plan will be to obtain a bladder scan to see how much he is retaining as well as insert a Goodwin to help him urinate. We will also plan on calling urologist at [facility] for further follow-up care. On bladder scan on ultrasound there was a large heterogeneous finding in the bladder. This is likely the clot from yesterday but we will repeat the ultrasound to make sure not significantly changing. Noted ultrasound reading for clot. There are some suggestion for possible neurofibroma however the patient has no history of this. I have placed a page out to [facility] urology. I was informed by the transfer center that Dr. Dasilva, urology, would call me back after he got out of surgery I spoke with Dr. Dasilva about the patient. He agrees with the plan for the daily Goodwin and to irrigate. He states that they can see the patient in the office and to just have the patient call. The patient has been irrigated and he is doing better. I did repeat a hemoglobin and he did have a small drop but is maintaining around 12 or 11. He is not currently on antibiotics or blood th inners and I have encouraged him not to take any sort of aspirin. Also discussed at length with patient that I wanted him to get up and move so that the blood would not have stasis and clot further into the Goodwin. I also encouraged him to drink a lot of fluids. The patient agrees with the plan. I have encouraged him to return if he has any problems with his Goodwin or any other concerns. - Vital Signs Vital signs: Temp Pulse Resp BP Pulse Ox 97.9 F 14 158/98 H 98 06/05/20 16:01 06/05/20 16:01 06/05/20 16:01 06/05/20 16:01 - Laboratory Result Diagrams: 06/05/20 14:45 06/05/20 10:52 Laboratory results interpreted by me: 06/05/20 06/05/20 06/05/20 08:10 10:52 10:52 WBC Hgb 13.4 L Hct MCH 26.9 L RDW 16.6 H APTT Sodium 134.4 L Calcium 11.2 H Alkaline Phosphatase 149 H Total Protein 8.5 H Urine Protein 100 H Urine Blood LARGE H Urine Ascorbic Acid 20 H 06/05/20 06/05/20 10:52 14:45 WBC 3.8 L Hgb 11.9 L Hct 36.5 L MCH 26.4 L RDW 16.5 H APTT 36.0 H Sodium Calcium Alkaline Phosphatase Total Protein Urine Protein Urine Blood Urine Ascorbic Acid - Diagnostic Test Radiology reviewed: Image reviewed, Reports reviewed Discharge - Discharge Clinical Impression: Urinary retention Hematuria Qualifiers: Hematuria type: gross Qualified Code(s): R31.0 - Gross hematuria Condition: Stable Disposition: HOME, SELF-CARE Instructions: Urinary Retention ([facility]) Additional Instructions: Please follow-up with Dr. Dasilva at the [facility] location. This is a urologist. You will need to continue with the catheter until you see them. Please call them to make an appointment as soon as possible. Return if you have worsening symptoms such as worsening pain, fever, nausea, vomiting, inability for urine to pass into the bag, or any other catheter issues. [facility] ENT, Urology [address] [place] [address] Referrals: LOCALMD,NO [Primary Care Provider] - Follow up as needed
[2020-06-05] MEDS ORDERED: LIDOCAINE 2% URO-JET 5 ML KIT MM ONE ×2 (09:22→13:49)
[2020-06-05 10:09] LABS: APPEARANCE,URINE SLIGHTLY-CLOUDY; BILIRUBIN,URINE NEGATIVE (NEGATIVE); COLOR,URINE RED; GLUCOSE, URINE NEGATIVE (NEGATIVE)
[2020-06-05 10:10] LABS: KETONES,URINE NEGATIVE (NEGATIVE); PROTEIN,URINE 100 mg/dL (NEGATIVE); URINE SPECIFIC GRAVITY 1.012; UROBILINOGEN,URINE NEGATIVE mg/dL (<2.0)
[2020-06-05 11:08] LABS: ABSOLUTE LYMPHOCYTES (AUTO) 1.3 10^3/uL (0.5-4.7); ABSOLUTE MONOCYTES (AUTO) 0.4 10^3/uL (0.1-1.4); ABSOLUTE NEUT (AUTO) 3.8 10^3/uL (1.7-8.2); BASOPHILS % (AUTO) 0.6 % (0-2); EOSINOPHILS % (AUTO) 0.1 % (0-6); HEMATOCRIT 41.1 % (37.9-51.0); HEMOGLOBIN 13.4 g/dL (13.5-17.0); LYMPHOCYTES % (AUTO) 23.8 % (13-45); MEAN CORPUSCULAR HEMOGLOBIN 26.9 pg (27.0-33.4); MEAN CORPUSCULAR HGB CONC 32.7 g/dL (32.0-36.0); MEAN CORPUSCULAR VOLUME 82 fl (80-97); MONOCYTES % (AUTO) 6.4 % (3-13); PLATELET COUNT 272 10^3/uL (150-450); RED BLOOD COUNT 4.98 10^6/uL (4.35-5.55); RED CELL DISTRIBUTION WIDTH 16.6 % (11.5-14.0); SEGMENTED NEUTROPHILS % (AUTO) 69.1 % (42-78); TOTAL CELLS COUNTED % (AUTO) 100 %; WHITE BLOOD COUNT 5.5 10^3/uL (4.0-10.5)
[2020-06-05 11:25] LABS: INTERNATIONAL RATION (INR) 1.05; PROTHROMBIN TIME 13.9 SEC (11.4-15.4)
[2020-06-05 11:29] LABS: ALBUMIN 4.9 g/dL (3.5-5.0); ALKALINE PHOSPHATASE 149 U/L (38-126); ANION GAP 11 (5-19); ASPARTATE AMINO TRANSFERASE 23 U/L (17-59); BILIRUBIN,DIRECT 0.2 mg/dL (0.0-0.4); BILIRUBIN,TOTAL 0.9 mg/dL (0.2-1.3); BLOOD UREA NITROGEN 14 mg/dL (7-20); CALCIUM 11.2 mg/dL (8.4-10.2); CARBON DIOXIDE 24 mmol/L (22-30); CHLORIDE 99 mmol/L (98-107); GLUCOSE 106 mg/dL (75-110); POTASSIUM 4.6 mmol/L (3.6-5.0); TOTAL PROTEIN 8.5 g/dL (6.3-8.2)
--- NOTE | 2020-06-05 11:43 | RADIOLOGY REPORT (SQ) ---
EXAM DESCRIPTION: U/S NON-OB PELVIS LTD W/O DOP IMAGES COMPLETED DATE/TIME: 06/05/2020 11:10 am REASON FOR STUDY: bloody urine, eval bladder for mass COMPARISON: 06/04/2020 TECHNIQUE: Dynamic and static grayscale images acquired of the urinary bladder via transabdominal ap proach and recorded on PACS. Additional selected color Doppler and spectral images recorded. LIMITATIONS: None. FINDINGS: BLADDER: Bladder is enlarged measuring 9.7 x 14.8 x 11.7 cm. There is complex debris wit hin the urinary bladder. Additional complex hyperechoic lamellated region within the dependent porti on of the urinary bladder measuring 10.8 x 9.1 x 6.2 cm. No evidence of internal vascularity noted. Findings similar to recent ultrasound on 06/04/2020. 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 Prevoid prem dder volume 873 cc. Postvoid bladder volume 959 cc. 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 IMPRESSION: 1. Large complex mixed echogenicity mass within the urinary bladder without evidence of internal vascularity. 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 Bladder findings may represent a lamellated mix ed chronicity clot versus intraluminal neurofibromas. Cystoscopy should be considered for evaluation of further characterization. Recommend urologic consultation. 2. Distended urinary bladder without significant change postvoid. Prevoid bladder volume 873 cc. Postvoid bladder volume 959 cc. TECHNICAL DOCUMENTATION: JOB ID: [id number] 2010 [employer]- All Rights Reserved Rev-11/26 Reading location - IP/workstation name: [email or web address]
[2020-06-05 15:03] LABS: ABSOLUTE MONOCYTES (AUTO) 0.3 10^3/uL (0.1-1.4); ABSOLUTE NEUT (AUTO) 2.4 10^3/uL (1.7-8.2); EOSINOPHILS % (AUTO) 0.2 % (0-6); HEMATOCRIT 36.5 % (37.9-51.0); HEMOGLOBIN 11.9 g/dL (13.5-17.0); MEAN CORPUSCULAR HEMOGLOBIN 26.4 pg (27.0-33.4); MEAN CORPUSCULAR HGB CONC 32.5 g/dL (32.0-36.0); MEAN CORPUSCULAR VOLUME 81 fl (80-97); MONOCYTES % (AUTO) 6.9 % (3-13); PLATELET COUNT 219 10^3/uL (150-450); RED CELL DISTRIBUTION WIDTH 16.5 % (11.5-14.0); SEGMENTED NEUTROPHILS % (AUTO) 63.9 % (42-78); TOTAL CELLS COUNTED % (AUTO) 100 %; WHITE BLOOD COUNT 3.8 10^3/uL (4.0-10.5)
[2020-06-05 16:47] VITALS: BP 158/98
== END 2020-06-05 16:40 | disposition home or self-care (01) ==
LOC: ER 08:01
DX: R31.0 Gross hematuria (principal); R33.9 Retention of urine, unspecified; R10.30 Lower abdominal pain, unspecified; I25.10 Atherosclerotic heart disease of native coronary artery without angina pectoris; I10 Essential (primary) hypertension; Z85.46 Personal history of malignant neoplasm of prostate; Z95.5 Presence of coronary angioplasty implant and graft
CPT/HCPCS: 36415; 51702; 76857; 80053; 81001; 85025; 85610; 85730; 87086; 99285

== ENCOUNTER 2020-06-07 05:54 | Emergency (ER) | payer BC, MEDICARE, OTHER ==
--- NOTE | 2020-06-07 07:40 | ER Document Report ---
Entered by VIRAL CRAFT SCRIBE 06/07/20 0657 Acting as scribe for:NATIVIDAD GILES MD ED GI/ - General Chief Complaint: Blood in Catheter Stated Complaint: CATHETER PROBLEM Time Seen by Provider: 06/07/20 06:45 Primary Care Provider: KARINA STEPHENSON [NO LOCAL MD] - Follow up as needed Mode of Arrival: Ambulatory Information source: Patient Notes: This 70 year old male patient with a history of prostate cancer presents to the emergency department today with complaints of urinary retention. Patient was seen in this emergency department on 06/03 and he had too numerous to count red blood cells in his urine, too numerous to count white blood cells, and 3+ bacteria. He was treated with Levaquin and there was no urine culture performed. On the he was seen again and still had too numerous to count red blood cells in his urine. On the he was seen and a Goodwin catheter was placed as he was having trouble with urinary retention. Patient states over the last few hours he has had urine coming out around the Goodwin catheter stating nothing is going into the bag. TRAVEL OUTSIDE OF THE [place] IN LAST 30 DAYS: No - Related Data Allergies/Adverse Reactions: No Known Allergies Allergy (Verified 06/04/20 16:40) Home Medications: bp med x5 Past Medical History - General Information source: Patient - Social History Smoking Status: Never Smoker Cigarette use (# per day): No Frequency of alcohol use: None Drug Abuse: None Lives with: Family Family History: Reviewed & Not Pertinent - Past Medical History Cardiac Medical History: Reports: Hx Coronary Artery Disease - stent x 2, Hx Hypertension - on meds Past Surgical History: Reports: Hx Cardiac Surgery - cardiac cath with stent - Immunizations Hx Diphtheria, Pertussis, Tetanus Vaccination: Yes Review of Systems - Review of Systems Constitutional: No symptoms reported EENT: No symptoms reported Cardiovascular: No symptoms reported Respiratory: No symptoms reported Gastrointestinal: No symptoms reported Genitourinary: See HPI, Pain, Retention Male Genitourinary: No symptoms reported Musculoskeletal: No symptoms reported Skin: No symptoms reported Hematologic/Lymphatic: No symptoms reported Neurological/Psychological: No symptoms reported -: Yes All other systems reviewed and negative Physical Exam - Vital signs Vitals: Temp Pulse Resp BP Pulse Ox 97.6 F 72 16 170/129 H 99 06/07/20 06:01 06/07/20 06:01 06/07/20 06:01 06/07/20 06:01 06/07/20 06:01 - Notes Notes: Physical Exam: General: Alert, appears well. HEENT: Normocephalic. Atraumatic. PERRL. Extraocular movements intact. Oropharynx clear. Neck: Supple. Non-tender. Respiratory: No respiratory distress. Clear and equal breath sounds bilaterally. Cardiovascular: Regular rate and rhythm. Abdominal: Suprapubic tenderness to palpation. No distension. Normal Bowel Sounds. Male Genitourinary: Goodwin catheter in place. Small amount of yellow urine in leg bag with no blood. Back: No gross abnormalities. Extremities: Moves all four extremities. Upper extremities: Normal inspection. Normal ROM. Lower extremities: Normal inspection. No edema. Normal ROM. Neurological: Normal cognition. AAOx4. Normal speech. Psychological: Normal affect. Normal Mood. Skin: Warm. Dry. Normal color. Course - Re-evaluation Re-evalutation: 06/07/20 08:44 The patient is catheter was irrigated until urine was freely flowing. The urine is quite bloody. Patient states he feels much better at this time. He has not been drinking lots of fluids, he has not been drinking large amount before going to bed and getting up during the night every few hours to drink a large amount of fluid. I have discussed the need to drink plenty of water throughout the day so he is frequently having to empty his leg bag. He is also to drink a large glass or 2 of water at bedtime, set an alarm to wake up in 2 to 3 hours and drink a large amount of water again. He is then to set an alarm again for 2 to 3 hours and get up and drink large amount of water. Advised him if he will follow this regimen he should be able to keep the catheter from clotting off. - Vital Signs Vital signs: Temp Pulse Resp BP Pulse Ox 97.6 F 72 16 170/129 H 99 06/07/20 06:01 06/07/20 06:01 06/07/20 06:01 06/07/20 06:01 06/07/20 06:01 - Laboratory Result Diagrams: 06/07/20 08:28 06/07/20 08:28 Laboratory results interpreted by me: 06/07/20 08:28 WBC 3.2 L Hgb 12.2 L Hct 37.3 L MCH 26.6 L RDW 16.2 H Discharge - Discharge Clinical Impression: Urinary retention Hematuria Qualifiers: Hematuria type: gross Qualified Code(s): R31.0 - Gross hematuria Obstruction of Goodwin catheter Qualifiers: Encounter type: initial encounter Qualified Code(s): T83.091A - Other mechanical complication of indwelling urethral catheter, initial encounter Condition: Stable Disposition: HOME, SELF-CARE Additional Instructions: Your catheter was obstructed with blood clots. It was easily irrigated free, but you are still at risk of having blood clots blocked the catheter. Is very important that you drink lots of fluids frequently throughout the day so that you are filling up your leg bag and emptying it several times during the day. Drink at least 2 large glasses of water at bedtime, set an alarm for 2 to 3 ho urs and get up and drink 2 to 3 large glasses of water again. Do this every 2-3 hours throughout the night to prevent your catheter from becoming obstructed. Be sure you have gotten an appointment with a urologist to evaluate the inside of your bladder. Be sure you take your blood pressure medications when you get home. RETURN TO THE EMERGENCY ROOM IF ANY NEW OR WORSENING SYMPTOMS. Referrals: LOCALMD,NO [NO LOCAL MD] - Follow up as needed I personally performed the services described in the documentation, reviewed and edited the documentation which was dictated to the scribe in my presence, and it accurately records my words and actions.
[2020-06-07 08:40] LABS: ABSOLUTE LYMPHOCYTES (AUTO) 1.1 10^3/uL (0.5-4.7); ABSOLUTE MONOCYTES (AUTO) 0.2 10^3/uL (0.1-1.4); ABSOLUTE NEUT (AUTO) 1.8 10^3/uL (1.7-8.2); BASOPHILS % (AUTO) 1.1 % (0-2); EOSINOPHILS % (AUTO) 0.6 % (0-6); HEMATOCRIT 37.3 % (37.9-51.0); HEMOGLOBIN 12.2 g/dL (13.5-17.0); LYMPHOCYTES % (AUTO) 33.9 % (13-45); MEAN CORPUSCULAR HEMOGLOBIN 26.6 pg (27.0-33.4); MEAN CORPUSCULAR HGB CONC 32.6 g/dL (32.0-36.0); MEAN CORPUSCULAR VOLUME 82 fl (80-97); MONOCYTES % (AUTO) 7.7 % (3-13); PLATELET COUNT 214 10^3/uL (150-450); RED BLOOD COUNT 4.57 10^6/uL (4.35-5.55); RED CELL DISTRIBUTION WIDTH 16.2 % (11.5-14.0); SEGMENTED NEUTROPHILS % (AUTO) 56.7 % (42-78); TOTAL CELLS COUNTED % (AUTO) 100 %; WHITE BLOOD COUNT 3.2 10^3/uL (4.0-10.5)
[2020-06-07 08:59] LABS: ALBUMIN 4.3 g/dL (3.5-5.0); ALKALINE PHOSPHATASE 143 U/L (38-126); ANION GAP 11 (5-19); ASPARTATE AMINO TRANSFERASE 19 U/L (17-59); BILIRUBIN,DIRECT 0.1 mg/dL (0.0-0.4); BILIRUBIN,TOTAL 0.7 mg/dL (0.2-1.3); BLOOD UREA NITROGEN 18 mg/dL (7-20); CALCIUM 10.9 mg/dL (8.4-10.2); CARBON DIOXIDE 23 mmol/L (22-30); CHLORIDE 104 mmol/L (98-107); GLUCOSE 91 mg/dL (75-110); POTASSIUM 3.6 mmol/L (3.6-5.0); TOTAL PROTEIN 7.7 g/dL (6.3-8.2)
[2020-06-07 09:12] VITALS: BP 139/76
== END 2020-06-07 09:13 | disposition home or self-care (01) ==
LOC: ER 05:54
DX: T83.091A Other mechanical complication of indwelling urethral catheter, initial encounter (principal); R33.9 Retention of urine, unspecified; R31.0 Gross hematuria; R30.0 Dysuria; Z85.46 Personal history of malignant neoplasm of prostate; Z79.899 Other long term (current) drug therapy; I25.10 Atherosclerotic heart disease of native coronary artery without angina pectoris; I10 Essential (primary) hypertension
CPT/HCPCS: 36415; 80053; 85025; 99282

== ENCOUNTER 2020-07-04 17:56 | Emergency (ER) | payer BC, MEDICARE, OTHER ==
[2020-07-04 18:02] VITALS: BP 140/72
[2020-07-04] MEDS ORDERED: CEPHALEXIN 500 MG CAPSULE PO ONE (18:10)
--- NOTE | 2020-07-04 18:11 | ER Document Report ---
ED Hand/Wrist Injury - General Chief Complaint: Laceration Stated Complaint: LACERATION Time Seen by Provider: 07/04/20 18:00 Mode of Arrival: Ambulatory Information source: Patient Notes: 70-year-old male presented to ED for an avulsion injury to the distal left middle finger. It is on the dorsal side of the hand. He states he was cutting a piece of meat with a very sharp knife when he cut his hand this morning but he came to the emergency room because it would not stop bleeding. He states he is not on a blood thinner. It is a superficial avulsion injury. Constitutional: Negative for fever. HENT: Negative for sore throat. Eyes: Negative for visual changes. Cardiovascular: Negative for chest pain. Respiratory: Negative for shortness of breath. Gastrointestinal: Negative for abdominal pain, vomiting or diarrhea. Genitourinary: Negative for dysuria. Musculoskeletal: Negative for back pain. Skin: Avulsion injury to the distal third finger left hand Neurological: Negative for headaches, weakness or numbness. 10 point ROS negative except as marked above and in HPI. PHYSICAL EXAMINATION: GENERAL: Well-appearing, well-nourished and in no acute distress. HEAD: Atraumatic, normocephalic. EYES: Pupils equal round extraocular movements intact, conjunctiva are normal. ENT: Nares patent NECK: Normal range of motion LUNGS: No respiratory distress Musculoskeletal: Normal range of motion NEUROLOGICAL: Normal speech, normal gait. PSYCH: Normal mood, normal affect. SKIN: Avulsion injury to the left third finger dorsal area of distal phalanx. TRAVEL OUTSIDE OF THE [place] IN LAST 30 DAYS: No - HPI Injury to: Middle finger Onset: This morning Where: Home, Indoors Timing: Still present Quality of pain: No pain Severity: None Pain Level: Denies Context: Other - Avulsion injury to the back of the left middle finger distal - Related Data Allergies/Adverse Reactions: No Known Allergies Allergy (Verified 06/04/20 16:40) Past Medical History - General Information source: Patient - Social History Smoking Status: Former Smoker Frequency of alcohol use: None Drug Abuse: None Occupation: [employer] Lives with: Family Family History: Reviewed & Not Pertinent Patient has suicidal ideation: No Patient has homicidal ideation: No - Past Medical History Cardiac Medical History: Reports: Hx Coronary Artery Disease - stent x 2, Hx Hypertension - on meds Pulmonary Medical History: Reports: None EENT Medical History: Reports: None Neurological Medical History: Reports: None Endocrine Medical History: Reports: None Renal/ Medical History: Reports: None Malignancy Medical History: Reports Hx Prostate Cancer GI Medical History: Reports: Hx Colonoscopy Musculoskeletal Medical History: Reports None Skin Medical History: Reports None Psychiatric Medical History: Reports: None Traumatic Medical History: Reports: None Infectious Medical History: Reports: None Past Surgical History: Reports: Hx Cardiac Catheterization, Hx Coronary Stent - Immunizations Hx Diphtheria, Pertussis, Tetanus Vaccination: Yes - 2017 History of Pneumococcal Vaccine: Yes - 2019 History of Influenza Vaccine for 04/2019 - 09/2019 Season: Yes Physical Exam - Vital signs Vitals: Temp Pulse Resp BP Pulse Ox 97.7 F 78 16 140/72 H 98 07/04/20 17:59 07/04/20 17:59 07/04/20 17:59 07/04/20 17:59 07/04/20 17:59 Course - Vital Signs Vital signs: Temp Pulse Resp BP Pulse Ox 97.7 F 78 16 140/72 H 98 07/04/20 17:59 07/04/20 17:59 07/04/20 17:59 07/04/20 17:59 07/04/20 17:59 - Laboratory Results Critical Laboratory Results Reviewed: No Critical Results - Radiology Results Critical Radiology Results Reviewed: No Critical Results Discharge - Discharge Clinical Impression: Avulsion of skin of finger Qualifiers: Encounter type: initial encounter Qualified Code(s): S61.209A - Unspecified op en wound of unspecified finger without damage to nail, initial encounter Condition: Stable Disposition: HOME, SELF-CARE Additional Instructions: Avulsion Injury You have an avulsion injury -- a loss of skin which can't be helped by suturing. When large, these injuries can require skin grafting. Smaller defects or shallow avulsions usually heal well with dressings. Keep the dressing clean and dry. If the bandage becomes wet, remove it, blot the area dry, and apply a fresh dressing. Change the dressings every day. Complete healing may take anywhere from 10 days to two months. The healing time depends on the size and depth of the avulsion and on the amount of crushing of underlying tissues. Re-examination by the physician is often necessary. If any signs of infection occur (swelling, redness, increasing tenderness, red streaks, profuse purulent drainage from the avulsion, tender lumps in the armpit or groin above the avulsion, or fever), see your doctor immediately. SOAP CLEANSING: Gently wash the wound daily using a mild soap (like Ivory, Phisoderm, Neutrogena). Use warm water, rubbing gently until all debris, ooze, and crusting have been washed from the wound. Allow to dry briefly (about 10 minutes) after cleaning. Repeat this cleansing at least three times a day for the first two days and then once or twice a day. ANTIBIOTIC OINTMENT PROTECTION: Your wounds are such that dressing them is not practical or optional. After cleansing, you should apply a thin coating of antibiotic ointment (Bacitracin, not Neosporin) to the wounds at least three times daily. This lessens infection risk, and may decrease the amount of scarring. Use a q-tip or dull butter knife, not your finger, to apply this ointment. Any debris or ooze which builds up in the ointment should be gently rubbed off with a sterile gauze pad. Harder crusting may need to be gently scrubbed off with a clean wash cloth with soap and warm water, perhaps applying a warm, wet wash cloth to the wound for ten minutes first. Development of redness, severe itching, or blistering may mean allergy to the ointment. See the doctor. Cephalexin The antibiotic you've been prescribed is a member of the cephalosporin class. This type of antibiotic covers a wide variety of infections, including those of the skin, lungs, and urinary tract. It's useful for staph infections. This antibiotic is slightly similar to the penicillin family. In rare cases, a person who is allergic to penicillin will also be allergic to this medication. If you have had a severe allergic reaction to penicillin, and have not taken this antibiotic since that time, notify your doctor. Antibiotics which cover many germs ("broad spectrum" antibiotics) are more likely to cause diarrhea or "yeast" infections. Women prone to vaginal yeast problems may suffer an attack after taking this antibiotic. In infants, oral thrush (white spots "stuck" on the cheek) or yeast diaper rash may result. See your doctor if these problems occur. Call at once if you develop itching, hives, shortness of breath, or lightheadedness. FOLLOW-UP CARE: Please return in __3___ days for an infection check and dressing change. If you have been referred to another physician for follow-up care, call that physicians office for an appointment as you were instructed. If you experience a significant change in your laceration, or if you are concerned there may be an infection (swelling, redness, drainage, increasing tenderness, red streaks, tender lumps in the armpit or groin above the laceration, or fever), return to the Emergency Department immediately re-evaluation. Prescriptions: Cephalexin Monohydrate [Keflex 500 mg Capsule] 500 mg PO QID #20 capsule Forms: Elevated Blood Pressure
== END 2020-07-04 18:36 | disposition home or self-care (01) ==
LOC: ER 17:56
DX: S61.213A Laceration without foreign body of left middle finger without damage to nail, initial encounter (principal); W26.0XXA Contact with knife, initial encounter; Y93.G1 Activity, food preparation and clean up; I25.10 Atherosclerotic heart disease of native coronary artery without angina pectoris; I10 Essential (primary) hypertension
CPT/HCPCS: 99283